=== PATIENT | male | born 1950 | race Caucasian/White ===

== ENCOUNTER 2018-05-24 11:27 | Emergency (ER) | payer OTHER ==
[~2018-05-24] VITALS: Ht 182.9 cm; Wt 129.3 kg
[~2018-05-24 11:27] MED LIST: AMLO10; AMLO10 PO; ASPI81CH; ATOR40TA; ATOR40TA PO; Aspirin EC81 MG PO; CELE200 PO; ESCI20 PO; GABA300 PO; GLIP5 PO; IBUP800 PO; INSULANPEN SC; LEVO750 PO; LOSARTAN-HCTZ1 EAC1 PO; LOSHYD100 PO; METF500 PO; Norco 5-325 Ta1 EACH PO; QVAR7.3 G1 IH; SITA100T2 PO; Simvastatin20 MG PO
[2018-05-24 11:59] LABS: Source, Urine Voided
[2018-05-24 12:08] LABS: Bilirubin, Urine Neg (Neg); Blood, Urine 5+ (Neg); Glucose Qualitative, Urine Neg (Neg); Ketones, Urine 1+ (Neg); Leukocyte Esterase, Urine 1+ (Neg); Nitrite, Urine Neg (Neg); Protein, Urine 3+ (Neg); Urobilinogen, Urine NORM (Normal)
[2018-05-24] MEDS ORDERED: AMLO5 PO (12:22)
[2018-05-24 12:23] LABS: Appearance, Urine Cloudy (Clear); Color, Urine Red (P-Yellow)
[2018-05-24] MEDS ORDERED: TAMS.4ER PO (12:23)
[2018-05-24 12:24] LABS: Red Blood Cells, Urine TNTC /hpf (0-2)
[2018-05-24 12:25] LABS: Bacteria Mod /hpf; Squamous Epithelial Cells Few /hpf (Few)
[2018-05-24] MEDS ORDERED: GABA300 PO (12:26)
[2018-05-24 12:27] LABS: BASOPHILS ABSOLUTE AUTO 0.06 K/mm3 (0.00-0.23); BASOPHILS PERCENT AUTO 1 % (0-2); EOSINOPHILS ABSOLUTE AUTO 0.26 K/mm3 (0.00-0.68); EOSINOPHILS PERCENT AUTO 3 % (0-6); Hematocrit 44.8 % (37.0-53.0); Hemoglobin 14.9 g/dL (13.5-17.5); IMMATURE GRAN ABSOLUTE AUTO 0.05 K/mm3 (0.00-0.10); IMMATURE GRAN PERCENT AUTO 1 % (0-1); LYMPHOCYTES ABSOLUTE AUTO 2.99 K/mm3 (0.84-5.20); LYMPHOCYTES PERCENT AUTO 29 % (21-46); MONOCYTES ABSOLUTE AUTO 0.82 K/mm3 (0.16-1.47); MONOCYTES PERCENT AUTO 8 % (4-13); Mean Corpuscular HGB 28.9 pg (26.0-34.0); Mean Corpuscular HGB Conc 33.3 g/dL (31.5-36.5); Mean Corpuscular Volume 87 fL (80-100); Mean Platelet Volume 9.2 fL (9.1-12.4); NEUTROPHILS ABSOLUTE AUTO 6.11 K/mm3 (1.96-9.15); NEUTROPHILS PERCENT AUTO 59 % (41-73); Platelet Count 257 K/mm3 (150-400); RDW Coefficient Variation 13.2 % (11.7-14.2); Red Blood Cell Count 5.15 M/mm3 (4.30-5.90); White Blood Cell Count 10.29 K/mm3 (4.00-11.30)
[2018-05-24] MEDS ORDERED: ALBU90OI61 INH (12:27)
[2018-05-24] MEDS ORDERED: ATOR20 PO (12:27)
[2018-05-24 12:46] LABS: Prothrombin Time Results 10.3 Sec (9.7-11.5)
[2018-05-24 12:48] LABS: Alanine Aminotransfer (ALT/SGP 31 U/L (12-78); Albumin/Globulin Ratio 0.9 (0.8-1.8); Alk Phos 124 U/L (50-136); Anion Gap 10 mmol/L (6-16); Aspartate Aminotrans (AST/SGOT 28 U/L (12-37); Bilirubin, Total 0.7 mg/dL (0.1-1.0); Blood Urea Nitrogen 20 mg/dL (8-24); CO2, Blood 23 mmol/L (21-32); Calcium, Blood 9.1 mg/dL (8.5-10.1); Chloride, Blood 103 mmol/L (98-108); Globulin, Blood 4.7 g/dL (2.2-4.0); Glomerular Filtration Rate >60 (60-); Glucose, Blood 118 mg/dL (70-99); Potassium, Blood 4.3 mmol/L (3.5-5.5); Sodium, Blood 136 mmol/L (136-145); Total Protein, Blood 8.7 g/dL (6.4-8.2)
[2018-05-24] MEDS ORDERED: Cipro500 MG PO (13:33)
== END 2018-05-24 13:40 | disposition home or self-care (01) ==
LOC: ER 11:27
PROVIDERS: Physician Assistant
DX: N39.0 Urinary tract infection, site not specified (principal); Z88.1 Allergy status to other antibiotic agents; Z79.899 Other long term (current) drug therapy; Z79.4 Long term (current) use of insulin; Z87.891 Personal history of nicotine dependence
CPT/HCPCS: 36415; 76770; 80053; 81001; 85025; 85610; 85730; 87086; 99284

== ENCOUNTER 2018-06-22 11:09 | Inpatient (IN) | payer OTHER ==
[~2018-06-22] VITALS: Ht 182.9 cm; Wt 122.5 kg
[~2018-06-22 11:09] MED LIST changes: +ALBU90OI61 INH; +AMLO5 PO; +ATOR20 PO; +Cipro500 MG PO; -METF500 PO; +METF850 PO; +TAMS.4ER PO
[2018-06-24 05:18] LABS: BASOPHILS ABSOLUTE AUTO 0.01 K/mm3 (0.00-0.23); BASOPHILS PERCENT AUTO 0 % (0-2); EOSINOPHILS PERCENT AUTO 0 % (0-6); Hematocrit 36.7 % (37.0-53.0); Hemoglobin 12.1 g/dL (13.5-17.5); IMMATURE GRAN ABSOLUTE AUTO 0.08 K/mm3 (0.00-0.10); IMMATURE GRAN PERCENT AUTO 1 % (0-1); LYMPHOCYTES ABSOLUTE AUTO 1.15 K/mm3 (0.84-5.20); LYMPHOCYTES PERCENT AUTO 8 % (21-46); MONOCYTES ABSOLUTE AUTO 0.88 K/mm3 (0.16-1.47); MONOCYTES PERCENT AUTO 6 % (4-13); Mean Corpuscular HGB 28.3 pg (26.0-34.0); Mean Corpuscular Volume 86 fL (80-100); NEUTROPHILS ABSOLUTE AUTO 12.69 K/mm3 (1.96-9.15); NEUTROPHILS PERCENT AUTO 86 % (41-73); Platelet Count 205 K/mm3 (150-400); RDW Standard Deviation 40.2 fL (35.1-46.3); Red Blood Cell Count 4.28 M/mm3 (4.30-5.90); White Blood Cell Count 14.81 K/mm3 (4.00-11.30)
[2018-06-24 05:40] LABS: Anion Gap 8 mmol/L (6-16); Blood Urea Nitrogen 26 mg/dL (8-24); Bun/Creatinine Ratio 26.4 (12.0-20.0); CO2, Blood 26 mmol/L (21-32); Calcium, Blood 8.6 mg/dL (8.5-10.1); Chloride, Blood 103 mmol/L (98-108); Creatinine, Blood 0.99 mg/dL (0.60-1.20); Glomerular Filtration Rate >60 (60-); Glucose, Blood 178 mg/dL (70-99); Potassium, Blood 4.9 mmol/L (3.5-5.5); Sodium, Blood 137 mmol/L (136-145)
[2018-06-25] MEDS ORDERED: OXYC5 PO (15:13)
[2018-06-25] MEDS ORDERED: ASPI325 PO (15:13)
[2018-06-25] MEDS ORDERED: DOCU100 PO (15:14)
== END 2018-06-25 15:23 | disposition home or self-care (01) | DRG 470 ==
LOC: SURS 06-23 12:13 → PRE IP 06-23 13:30 → SURS 06-23 18:30
PROVIDERS: Orthopaedic Surgery
PROC: 0SR90JZ Replacement of Right Hip Joint with Synthetic Substitute, Open Approach (ICD-10-PCS; principal; 2018-06-23 13:30)
DX: M16.11 Unilateral primary osteoarthritis, right hip (principal); I10 Essential (primary) hypertension; J44.9 Chronic obstructive pulmonary disease, unspecified; G47.33 Obstructive sleep apnea (adult) (pediatric); E11.9 Type 2 diabetes mellitus without complications; E66.9 Obesity, unspecified; Z68.36 Body mass index [BMI] 36.0-36.9, adult
CPT/HCPCS: 36415; 72170; 80048; 82947; 85025; 86850; 86900; 86901; 94760; 97110; 97116; 97162; 97165; 97530; 97535; A9270; C1713; C1776; G8978; G8979; G8980; G8987; G8988; J0171; J0690; J0735; J1100; J1885; J2250; J2795; J3010; J7120; Q0163

== ENCOUNTER 2018-07-08 12:42 | Emergency (ER) | payer OTHER ==
[~2018-07-08] VITALS: Ht 182.9 cm; Wt 127.0 kg
[~2018-07-08 12:42] MED LIST changes: +ASPI325 PO; +DOCU100 PO; +OXYC5 PO
[2018-07-08 15:26] LABS: Source, Urine Clean Catch
[2018-07-08 15:30] LABS: Appearance, Urine Turbid (Clear); Bilirubin, Urine Neg (Neg); Blood, Urine 5+ (Neg); Color, Urine Brown (P-Yellow); Glucose Qualitative, Urine Neg (Neg); Ketones, Urine Neg (Neg); Leukocyte Esterase, Urine 1+ (Neg); Nitrite, Urine Pos (Neg); Protein, Urine 3+ (Neg); Urobilinogen, Urine NORM (Normal)
[2018-07-08 16:05] LABS: BASOPHILS ABSOLUTE AUTO 0.07 K/mm3 (0.00-0.23); BASOPHILS PERCENT AUTO 1 % (0-2); EOSINOPHILS PERCENT AUTO 4 % (0-6); Hematocrit 39.7 % (37.0-53.0); Hemoglobin 12.5 g/dL (13.5-17.5); IMMATURE GRAN ABSOLUTE AUTO 0.09 K/mm3 (0.00-0.10); IMMATURE GRAN PERCENT AUTO 1 % (0-1); LYMPHOCYTES ABSOLUTE AUTO 2.86 K/mm3 (0.84-5.20); LYMPHOCYTES PERCENT AUTO 28 % (21-46); MONOCYTES ABSOLUTE AUTO 0.88 K/mm3 (0.16-1.47); MONOCYTES PERCENT AUTO 9 % (4-13); Mean Corpuscular HGB 28.1 pg (26.0-34.0); Mean Corpuscular HGB Conc 31.5 g/dL (31.5-36.5); Mean Corpuscular Volume 89 fL (80-100); Mean Platelet Volume 8.9 fL (9.1-12.4); NEUTROPHILS ABSOLUTE AUTO 5.83 K/mm3 (1.96-9.15); NEUTROPHILS PERCENT AUTO 58 % (41-73); Platelet Count 284 K/mm3 (150-400); RDW Coefficient Variation 13.3 % (11.7-14.2); RDW Standard Deviation 43.6 fL (35.1-46.3); Red Blood Cell Count 4.45 M/mm3 (4.30-5.90); White Blood Cell Count 10.13 K/mm3 (4.00-11.30)
[2018-07-08 16:23] LABS: Alanine Aminotransfer (ALT/SGP 32 U/L (12-78); Albumin, Blood 3.6 g/dL (3.4-5.0); Albumin/Globulin Ratio 0.8 (0.8-1.8); Alk Phos 129 U/L (50-136); Anion Gap 7 mmol/L (6-16); Aspartate Aminotrans (AST/SGOT 19 U/L (12-37); Bilirubin, Total 0.4 mg/dL (0.1-1.0); Blood Urea Nitrogen 20 mg/dL (8-24); Bun/Creatinine Ratio 17.7 (12.0-20.0); CO2, Blood 26 mmol/L (21-32); Calcium, Blood 9.1 mg/dL (8.5-10.1); Chloride, Blood 104 mmol/L (98-108); Creatinine, Blood 1.13 mg/dL (0.60-1.20); Globulin, Blood 4.6 g/dL (2.2-4.0); Glomerular Filtration Rate >60 (60-); Glucose, Blood 106 mg/dL (70-99); Potassium, Blood 4.4 mmol/L (3.5-5.5); Sodium, Blood 137 mmol/L (136-145); Total Protein, Blood 8.2 g/dL (6.4-8.2)
[2018-07-08 16:26] LABS: Bacteria Many /hpf; Red Blood Cells, Urine TNTC /hpf (0-2); Squamous Epithelial Cells Not Seen /hpf (Few)
[2018-07-08] MEDS ORDERED: LEVO750 PO (16:45)
== END 2018-07-08 17:03 | disposition home or self-care (01) ==
LOC: ER 12:42
PROVIDERS: Emergency Medicine
DX: N39.0 Urinary tract infection, site not specified (principal); R31.9 Hematuria, unspecified; Z88.1 Allergy status to other antibiotic agents; Z88.5 Allergy status to narcotic agent; Z79.899 Other long term (current) drug therapy; Z79.4 Long term (current) use of insulin; Z79.82 Long term (current) use of aspirin; Z87.891 Personal history of nicotine dependence
CPT/HCPCS: 36415; 80053; 81001; 85025; 87086; 99283

== ENCOUNTER 2018-07-11 11:27 | Emergency (ER) | payer OTHER ==
[~2018-07-11] VITALS: Ht 182.9 cm; Wt 124.7 kg
[2018-07-11 12:28] LABS: BASOPHILS ABSOLUTE AUTO 0.07 K/mm3 (0.00-0.23); BASOPHILS PERCENT AUTO 1 % (0-2); EOSINOPHILS ABSOLUTE AUTO 0.38 K/mm3 (0.00-0.68); EOSINOPHILS PERCENT AUTO 4 % (0-6); Hematocrit 37.9 % (37.0-53.0); Hemoglobin 12.1 g/dL (13.5-17.5); IMMATURE GRAN PERCENT AUTO 1 % (0-1); LYMPHOCYTES ABSOLUTE AUTO 1.87 K/mm3 (0.84-5.20); LYMPHOCYTES PERCENT AUTO 22 % (21-46); MONOCYTES PERCENT AUTO 8 % (4-13); Mean Corpuscular HGB 28.3 pg (26.0-34.0); Mean Corpuscular HGB Conc 31.9 g/dL (31.5-36.5); Mean Corpuscular Volume 89 fL (80-100); Mean Platelet Volume 9.3 fL (9.1-12.4); NEUTROPHILS PERCENT AUTO 64 % (41-73); Platelet Count 289 K/mm3 (150-400); RDW Coefficient Variation 13.5 % (11.7-14.2); RDW Standard Deviation 43.3 fL (35.1-46.3); Red Blood Cell Count 4.28 M/mm3 (4.30-5.90); White Blood Cell Count 8.62 K/mm3 (4.00-11.30)
[2018-07-11 12:46] LABS: Alanine Aminotransfer (ALT/SGP 24 U/L (12-78); Albumin, Blood 3.4 g/dL (3.4-5.0); Albumin/Globulin Ratio 0.8 (0.8-1.8); Alk Phos 140 U/L (50-136); Anion Gap 7 mmol/L (6-16); Aspartate Aminotrans (AST/SGOT 9 U/L (12-37); Bilirubin, Total 0.2 mg/dL (0.1-1.0); Blood Urea Nitrogen 26 mg/dL (8-24); CO2, Blood 26 mmol/L (21-32); Chloride, Blood 106 mmol/L (98-108); Creatinine, Blood 1.24 mg/dL (0.60-1.20); Globulin, Blood 4.5 g/dL (2.2-4.0); Glomerular Filtration Rate >60 (60-); Glucose, Blood 267 mg/dL (70-99); Potassium, Blood 4.3 mmol/L (3.5-5.5); Sodium, Blood 139 mmol/L (136-145); Total Protein, Blood 7.9 g/dL (6.4-8.2)
[2018-07-12] MEDS ORDERED: Percocet 5-3251 EACH PO (05:03)
[2018-07-12] MEDS ORDERED: HYOS.125 SL (06:51)
[2018-07-12] MEDS ORDERED: OXYB5ER PO (06:51)
[2018-07-12] MEDS ORDERED: Belladonna-Opi1 EAC1 PR (06:51)
[2018-07-12] MEDS ORDERED: Detrol LA4 MG PO (06:51)
== END 2018-07-11 16:34 | disposition home or self-care (01) ==
LOC: ER 11:27
PROVIDERS: Physician Assistant
DX: R31.9 Hematuria, unspecified (principal); R33.9 Retention of urine, unspecified; F17.210 Nicotine dependence, cigarettes, uncomplicated; Z88.1 Allergy status to other antibiotic agents; Z88.5 Allergy status to narcotic agent; Z79.899 Other long term (current) drug therapy; Z79.4 Long term (current) use of insulin; Z79.82 Long term (current) use of aspirin
CPT/HCPCS: 36415; 51700; 51798; 80053; 85025; 99283-25

== ENCOUNTER 2018-07-12 00:50 | Emergency (ER) | payer OTHER ==
[~2018-07-12] VITALS: Ht 182.9 cm; Wt 124.7 kg
[2018-07-12] MEDS ORDERED: Percocet 5-3251 EACH PO (05:03)
[2018-07-12] MEDS ORDERED: HYOS.125 SL (06:51)
[2018-07-12] MEDS ORDERED: OXYB5ER PO (06:51)
[2018-07-12] MEDS ORDERED: Detrol LA4 MG PO (06:51)
[2018-07-12] MEDS ORDERED: Belladonna-Opi1 EAC1 PR (06:51)
== END 2018-07-12 11:06 | disposition home or self-care (01) ==
LOC: ER 00:50
DX: R31.9 Hematuria, unspecified (principal); R30.0 Dysuria; N32.89 Other specified disorders of bladder; F17.210 Nicotine dependence, cigarettes, uncomplicated; Z88.1 Allergy status to other antibiotic agents; Z88.5 Allergy status to narcotic agent; Z79.899 Other long term (current) drug therapy; Z79.4 Long term (current) use of insulin; Z79.82 Long term (current) use of aspirin
CPT/HCPCS: 51700; 51702; 51798; 96372; 96374; 96375; 99283-25; J1200; J1630; J2405; J3010

== ENCOUNTER 2018-07-15 09:53 | Emergency (ER) | payer OTHER ==
[~2018-07-15] VITALS: Ht 167.6 cm; Wt 99.8 kg
[~2018-07-15 09:53] MED LIST changes: +Belladonna-Opi1 EAC1 PR; +Detrol LA4 MG PO; +HYOS.125 SL; +OXYB5ER PO; +Percocet 5-3251 EACH PO
== END 2018-07-15 11:39 | disposition home or self-care (01) ==
LOC: ER 09:53
DX: T83.83XA Hemorrhage due to genitourinary prosthetic devices, implants and grafts, initial encounter (principal); F17.210 Nicotine dependence, cigarettes, uncomplicated; Z88.1 Allergy status to other antibiotic agents; Z88.5 Allergy status to narcotic agent; Z79.899 Other long term (current) drug therapy; Z79.4 Long term (current) use of insulin; Z79.82 Long term (current) use of aspirin
CPT/HCPCS: 99283

== ENCOUNTER 2018-07-20 04:26 | Emergency (ER) | payer OTHER ==
[~2018-07-20] VITALS: Ht 182.9 cm; Wt 124.7 kg
== END 2018-07-20 05:42 | disposition home or self-care (01) ==
LOC: ER 04:26
DX: T83.098A Other mechanical complication of other urinary catheter, initial encounter (principal); R31.9 Hematuria, unspecified; Z88.1 Allergy status to other antibiotic agents; Z88.5 Allergy status to narcotic agent; Z79.899 Other long term (current) drug therapy; Z79.84 Long term (current) use of oral hypoglycemic drugs; Z79.4 Long term (current) use of insulin; Z79.82 Long term (current) use of aspirin; Z79.2 Long term (current) use of antibiotics; F17.210 Nicotine dependence, cigarettes, uncomplicated
CPT/HCPCS: 51702; 99283

== ENCOUNTER 2018-07-20 06:42 | Emergency (ER) | payer OTHER ==
[~2018-07-20] VITALS: Ht 182.9 cm; Wt 124.7 kg
== END 2018-07-20 10:23 | disposition home or self-care (01) ==
LOC: ER 06:42
DX: T83.091A Other mechanical complication of indwelling urethral catheter, initial encounter (principal); N32.89 Other specified disorders of bladder; F17.210 Nicotine dependence, cigarettes, uncomplicated; Z88.1 Allergy status to other antibiotic agents; Z88.5 Allergy status to narcotic agent; Z79.899 Other long term (current) drug therapy; Z79.4 Long term (current) use of insulin; Z79.82 Long term (current) use of aspirin
CPT/HCPCS: 51700; 51702; 51798; 96372; 99283-25; J2550; J3010

== ENCOUNTER 2018-11-02 00:56 | Day surgery (SDC) | payer OTHER ==
[~2018-11-02 00:56] MED LIST changes: +DOXA1 PO; +HYDR1TAB94 PO; +Hydrocodone-Ap1 EA23 PO; +OXYB5 PO
[2018-11-02] MEDS ORDERED: Glucophage1000 MG PO (23:43)
[2018-11-02] MEDS ORDERED: TIOT18 INH (23:44)
[2018-11-02] MEDS ORDERED: Ferrous Sulfat325 M2 PO (23:45)
[2018-11-02] MEDS ORDERED: VITAMIN B-121000 MCG PO (23:46)
[2018-11-02] MEDS ORDERED: HYOS.125 SL (23:49)
[2018-11-03] MEDS ORDERED: ACET325 PO (11:56)
[2018-11-03] MEDS ORDERED: Bisac-Evac10 MG PR (11:57)
[2018-11-03] MEDS ORDERED: LEVO750 PO (11:58)
[2018-11-03] MEDS ORDERED: ONDA4ODT MM (11:59)
[2018-11-03] MEDS ORDERED: SACC250C PO (11:59)
== END 2018-11-02 14:12 | disposition home or self-care (01) ==
LOC: ATC 00:56
DX: Z48.00 Encounter for change or removal of nonsurgical wound dressing (principal); C67.9 Malignant neoplasm of bladder, unspecified; E11.9 Type 2 diabetes mellitus without complications; F17.200 Nicotine dependence, unspecified, uncomplicated; Z79.4 Long term (current) use of insulin
CPT/HCPCS: 99211

== ENCOUNTER 2018-11-02 18:57 | Observation (INO) | payer OTHER ==
[~2018-11-02] VITALS: Ht 182.9 cm; Wt 122.5 kg
[2018-11-02 21:47] LABS: Source, Urine Clean Catch
[2018-11-02 21:56] LABS: Appearance, Urine Cloudy (Clear); Bilirubin, Urine Neg (Neg); Blood, Urine 5+ (Neg); Color, Urine Amber (P-Yellow); Glucose Qualitative, Urine Neg (Neg); Ketones, Urine Neg (Neg); Leukocyte Esterase, Urine 3+ (Neg); Nitrite, Urine Neg (Neg); Protein, Urine 3+ (Neg); Specific Gravity, Urine 1.015 (1.003-1.022); Urobilinogen, Urine NORM (Normal)
[2018-11-02 21:57] LABS: BASOPHILS ABSOLUTE AUTO 0.02 K/mm3 (0.00-0.23); BASOPHILS PERCENT AUTO 0 % (0-2); EOSINOPHILS ABSOLUTE AUTO 0.04 K/mm3 (0.00-0.68); EOSINOPHILS PERCENT AUTO 0 % (0-6); Hematocrit 25.1 % (37.0-53.0); Hemoglobin 7.9 g/dL (13.5-17.5); IMMATURE GRAN ABSOLUTE AUTO 0.12 K/mm3 (0.00-0.10); IMMATURE GRAN PERCENT AUTO 1 % (0-1); LYMPHOCYTES ABSOLUTE AUTO 2.53 K/mm3 (0.84-5.20); LYMPHOCYTES PERCENT AUTO 21 % (21-46); MONOCYTES PERCENT AUTO 13 % (4-13); Mean Corpuscular HGB 26.5 pg (26.0-34.0); Mean Corpuscular HGB Conc 31.5 g/dL (31.5-36.5); Mean Corpuscular Volume 84 fL (80-100); NEUTROPHILS ABSOLUTE AUTO 7.68 K/mm3 (1.96-9.15); NEUTROPHILS PERCENT AUTO 65 % (41-73); Platelet Count 98 K/mm3 (150-400); RDW Coefficient Variation 18.8 % (11.7-14.2); RDW Standard Deviation 55.5 fL (35.1-46.3); Red Blood Cell Count 2.98 M/mm3 (4.30-5.90); White Blood Cell Count 11.89 K/mm3 (4.00-11.30)
[2018-11-02 22:06] LABS: Red Blood Cells, Urine 50-100 /hpf (0-2); White Blood Cells, Urine 25-50 /hpf (0-5)
[2018-11-02 22:07] LABS: Bacteria Many /hpf; Squamous Epithelial Cells Few /hpf (Few)
[2018-11-02 22:09] LABS: Albumin, Blood 2.8 g/dL (3.4-5.0); Albumin/Globulin Ratio 0.7 (0.8-1.8); Bilirubin, Total 0.2 mg/dL (0.1-1.0); Bun/Creatinine Ratio 13.2 (12.0-20.0); Creatinine, Blood 1.44 mg/dL (0.60-1.20); Globulin, Blood 4.1 g/dL (2.2-4.0); Potassium, Blood 3.8 mmol/L (3.5-5.5); Total Protein, Blood 6.9 g/dL (6.4-8.2)
[2018-11-02] MEDS ORDERED: Glucophage1000 MG PO ×2 (23:43)
[2018-11-02] MEDS ORDERED: TIOT18 INH ×2 (23:44)
[2018-11-02] MEDS ORDERED: Ferrous Sulfat325 M2 PO ×2 (23:45)
[2018-11-02] MEDS ORDERED: VITAMIN B-121000 MCG PO ×2 (23:46)
[2018-11-02] MEDS ORDERED: HYOS.125 SL ×2 (23:49)
[2018-11-03 01:52] LABS: Influenza A Negative (NEGATIVE); Influenza B Negative (NEGATIVE)
[2018-11-03 06:12] LABS: Hemoglobin 7.8 g/dL (13.5-17.5); Mean Corpuscular HGB 25.7 pg (26.0-34.0); Mean Corpuscular HGB Conc 31.2 g/dL (31.5-36.5); Mean Corpuscular Volume 83 fL (80-100); Platelet Count 98 K/mm3 (150-400); RDW Coefficient Variation 18.5 % (11.7-14.2); Red Blood Cell Count 3.03 M/mm3 (4.30-5.90); White Blood Cell Count 9.81 K/mm3 (4.00-11.30)
[2018-11-03 06:27] LABS: Albumin, Blood 2.6 g/dL (3.4-5.0); Albumin/Globulin Ratio 0.6 (0.8-1.8); Bilirubin, Total 0.2 mg/dL (0.1-1.0); Bun/Creatinine Ratio 12.9 (12.0-20.0); Calcium, Blood 8.1 mg/dL (8.5-10.1); Creatinine, Blood 1.32 mg/dL (0.60-1.20); Globulin, Blood 4.3 g/dL (2.2-4.0); Potassium, Blood 3.7 mmol/L (3.5-5.5); Total Protein, Blood 6.9 g/dL (6.4-8.2)
[2018-11-03 08:03] LABS: Glucose, Blood 140 mg/dL (70-99)
[2018-11-03] MEDS ORDERED: ACET325 PO ×2 (11:56)
[2018-11-03] MEDS ORDERED: Bisac-Evac10 MG PR ×2 (11:57)
[2018-11-03] MEDS ORDERED: LEVO750 PO ×2 (11:58)
[2018-11-03] MEDS ORDERED: SACC250C PO ×2 (11:59)
[2018-11-03] MEDS ORDERED: ONDA4ODT MM ×2 (11:59)
== END 2018-11-03 14:29 | disposition home or self-care (01) ==
LOC: ER 18:57 → ERHOLD 18:58 → ER 11-03 01:01 → ERHOLD 11-03 01:01
PROVIDERS: Emergency Medicine; Internal Medicine
DX: N39.0 Urinary tract infection, site not specified (principal); K59.00 Constipation, unspecified; D50.0 Iron deficiency anemia secondary to blood loss (chronic); Z88.1 Allergy status to other antibiotic agents; Z88.5 Allergy status to narcotic agent; Z79.899 Other long term (current) drug therapy; Z87.891 Personal history of nicotine dependence
CPT/HCPCS: 36415; 71045; 80053; 81001; 82947; 83605; 85025; 85027; 86850; 86900; 86901; 86923; 87077; 87086; 87186; 87804; 93005; 93010; 96361; 96374; 96375; 99284-25; J1956; J3010; J7030; P9016

== ENCOUNTER 2018-11-14 13:55 | Day surgery (SDC) | payer OTHER ==
[~2018-11-14 13:55] MED LIST changes: +ACET325 PO; +Bisac-Evac10 MG PR; +Ferrous Sulfat325 M2 PO; +Glucophage1000 MG PO; +ONDA4ODT MM; +SACC250C PO; +TIOT18 INH; +VITAMIN B-121000 MCG PO
== END 2018-11-14 14:15 | disposition home or self-care (01) ==
LOC: ATC 13:55
DX: C67.9 Malignant neoplasm of bladder, unspecified (principal)
CPT/HCPCS: 99211

== ENCOUNTER 2018-11-24 00:07 | Day surgery (SDC) | payer OTHER ==
[2018-11-24 10:24] LABS: Source, Urine Catheter
[2018-11-24 10:31] LABS: Appearance, Urine Clear (Clear); Blood, Urine 4+ (Neg); Glucose Qualitative, Urine Neg (Neg); Ketones, Urine Neg (Neg); Leukocyte Esterase, Urine 3+ (Neg); Nitrite, Urine Pos (Neg); Protein, Urine 3+ (Neg); Urobilinogen, Urine 1+ (Normal)
[2018-11-24 10:32] LABS: Hematocrit 28.3 % (37.0-53.0); Hemoglobin 8.7 g/dL (13.5-17.5); Mean Corpuscular HGB Conc 30.7 g/dL (31.5-36.5); Mean Corpuscular Volume 85 fL (80-100); Mean Platelet Volume 8.4 fL (9.1-12.4); NRBC ABSOLUTE 0.03 K/mm3 (0.00-0.02); NRBC Auto 0.7 /100 WBC (0.0-0.2); Platelet Count 130 K/mm3 (150-400); RDW Standard Deviation 57.6 fL (35.1-46.3); Red Blood Cell Count 3.34 M/mm3 (4.30-5.90); White Blood Cell Count 4.44 K/mm3 (4.00-11.30)
[2018-11-24 10:36] LABS: Bilirubin, Urine 1+ (Neg)
[2018-11-24 10:37] LABS: Color, Urine Yellow (P-Yellow)
[2018-11-24 10:40] LABS: Bacteria Mod /hpf; Mucus Light (0-Heavy); Squamous Epithelial Cells Few /hpf (Few)
[2018-11-24 10:51] LABS: Albumin, Blood 3.2 g/dL (3.4-5.0); Albumin/Globulin Ratio 0.7 (0.8-1.8); Bilirubin, Total 0.4 mg/dL (0.1-1.0); Bun/Creatinine Ratio 15.5 (12.0-20.0); Creatinine, Blood 1.87 mg/dL (0.60-1.20); Globulin, Blood 4.6 g/dL (2.2-4.0); Potassium, Blood 4.7 mmol/L (3.5-5.5); Total Protein, Blood 7.8 g/dL (6.4-8.2)
[2018-11-24 10:52] LABS: BASOPHILS PERCENT MAN 0 % (0-2); EOSINOPHILS ABSOLUTE MAN 0.17 K/mm3 (0.00-0.68); EOSINOPHILS PERCENT MAN 4 % (0-6); LYMPHOCYTES % ATYPICAL MANUAL 1 % (0-0); LYMPHOCYTES ABSOLUTE MAN 1.11 K/mm3 (0.84-5.20); LYMPHOCYTES PERCENT MAN 24 % (21-46); MONOCYTES ABSOLUTE MAN 0.31 K/mm3 (0.16-1.47); MONOCYTES PERCENT MAN 7 % (4-13); NEUTROPHILS ABSOLUTE MAN 2.84 K/mm3 (1.96-9.15); SEG NEUTROPHILS PERCENT MAN 64 % (41-73); TOTAL CELLS COUNTED 100
== END 2018-11-24 10:20 | disposition home or self-care (01) ==
LOC: ATC 00:07
PROVIDERS: Internal Medicine Hematology & Oncology
DX: C67.0 Malignant neoplasm of trigone of bladder (principal); F17.210 Nicotine dependence, cigarettes, uncomplicated; I10 Essential (primary) hypertension; E11.9 Type 2 diabetes mellitus without complications
CPT/HCPCS: 36592; 80053; 81001; 83735; 85025; 87077; 87086; 87186

== ENCOUNTER 2018-11-30 00:09 | Day surgery (SDC) | payer OTHER ==
[2018-11-30] MEDS ORDERED: Bactrim Ds Tab1 EACH PO (11:11)
== END 2018-11-30 23:05 | disposition home or self-care (01) ==
LOC: ATC 00:09
DX: Z48.00 Encounter for change or removal of nonsurgical wound dressing (principal); C67.9 Malignant neoplasm of bladder, unspecified
CPT/HCPCS: 99211

== ENCOUNTER 2018-12-07 00:08 | Day surgery (SDC) | payer OTHER ==
[~2018-12-07 00:08] MED LIST changes: +Bactrim Ds Tab1 EACH PO
== END 2018-12-07 09:16 | disposition home or self-care (01) ==
LOC: ATC 00:08
DX: C67.0 Malignant neoplasm of trigone of bladder (principal); F17.210 Nicotine dependence, cigarettes, uncomplicated; E78.00 Pure hypercholesterolemia, unspecified; I10 Essential (primary) hypertension
CPT/HCPCS: 99211

== ENCOUNTER 2018-12-14 00:11 | Day surgery (SDC) | payer OTHER | END 2018-12-14 11:08 | disposition home or self-care (01) | LOC: ATC 00:11 | DX: Z48.00 Encounter for change or removal of nonsurgical wound dressing (principal); C67.9 Malignant neoplasm of bladder, unspecified | CPT/HCPCS: 99211 ==

== ENCOUNTER 2018-12-17 09:23 | Day surgery (SDC) | payer OTHER ==
--- NOTE | 2018-12-17 10:56 | NUR ---
BLOOD DRAWN VIA PICC, WILL COMPLETE ASSESSMENT WHEN PT RETURNS FOR BLOOD TRANSFUSION.
== END 2018-12-17 15:40 | disposition home or self-care (01) ==
LOC: ATC 09:23
DX: C67.9 Malignant neoplasm of bladder, unspecified (principal)
CPT/HCPCS: 36430; 36592; 86850; 86900; 86901; 86923; J7050; P9016

== ENCOUNTER 2018-12-21 00:22 | Day surgery (SDC) | payer OTHER ==
[2018-12-21 10:53] LABS: BASOPHILS ABSOLUTE AUTO 0.01 K/mm3 (0.00-0.23); BASOPHILS PERCENT AUTO 0 % (0-2); EOSINOPHILS ABSOLUTE AUTO 0.07 K/mm3 (0.00-0.68); EOSINOPHILS PERCENT AUTO 3 % (0-6); Hematocrit 26.6 % (37.0-53.0); Hemoglobin 8.3 g/dL (13.5-17.5); IMMATURE GRAN ABSOLUTE AUTO 0.06 K/mm3 (0.00-0.10); IMMATURE GRAN PERCENT AUTO 3 % (0-1); LYMPHOCYTES ABSOLUTE AUTO 1.04 K/mm3 (0.84-5.20); LYMPHOCYTES PERCENT AUTO 43 % (21-46); MONOCYTES ABSOLUTE AUTO 0.61 K/mm3 (0.16-1.47); MONOCYTES PERCENT AUTO 25 % (4-13); Mean Corpuscular HGB 27.9 pg (26.0-34.0); Mean Corpuscular HGB Conc 31.2 g/dL (31.5-36.5); Mean Platelet Volume 9.1 fL (9.1-12.4); NEUTROPHILS ABSOLUTE AUTO 0.65 K/mm3 (1.96-9.15); NEUTROPHILS PERCENT AUTO 27 % (41-73); NRBC ABSOLUTE 0.03 K/mm3 (0.00-0.02); NRBC Auto 1.2 /100 WBC (0.0-0.2); Platelet Count 287 K/mm3 (150-400); RDW Standard Deviation 65.1 fL (35.1-46.3); Red Blood Cell Count 2.97 M/mm3 (4.30-5.90); White Blood Cell Count 2.44 K/mm3 (4.00-11.30)
[2018-12-21 10:54] LABS: Mean Corpuscular Volume 90 fL (80-100)
[2018-12-21 11:14] LABS: Bun/Creatinine Ratio 15.4 (12.0-20.0); Calcium, Blood 8.6 mg/dL (8.5-10.1); Creatinine, Blood 1.82 mg/dL (0.60-1.20); Potassium, Blood 4.8 mmol/L (3.5-5.5)
== END 2018-12-21 10:43 | disposition home or self-care (01) ==
LOC: ATC 00:22
PROVIDERS: Internal Medicine Hematology & Oncology
DX: C67.9 Malignant neoplasm of bladder, unspecified (principal); D70.1 Agranulocytosis secondary to cancer chemotherapy; D64.81 Anemia due to antineoplastic chemotherapy
CPT/HCPCS: 36592; 80048; 85025

== ENCOUNTER 2018-12-22 00:04 | Day surgery (SDC) | payer OTHER | END 2018-12-22 22:45 | disposition home or self-care (01) | LOC: ATC 00:04 | DX: C67.0 Malignant neoplasm of trigone of bladder (principal) ==

== ENCOUNTER 2018-12-28 00:08 | Day surgery (SDC) | payer OTHER | END 2018-12-28 22:42 | disposition home or self-care (01) | LOC: ATC 00:08 | DX: C67.0 Malignant neoplasm of trigone of bladder (principal) | CPT/HCPCS: 99211 ==

== ENCOUNTER 2019-01-04 00:04 | Day surgery (SDC) | payer OTHER ==
--- NOTE | 2019-01-04 15:45 | NUR ---
STERILE TECHNIQUE MAINTAINED T/O PROCEDURE. PT HAS SMALL <1 CM OF REDNESS TO TOP OF WINDOW DRESSING. STRIP OF MEPILEX PLACED OVER TO MAINTAIN SKIN INTEGRITY. LINE @ 14 CM BEFORE AND AFTER DRESSING CHANGE. AFTER NUMEROUS ATTEMPTS TO OBTAIN PICC RECORD FROM [facility] HAVE BEEN UNSUCCESSFUL. THIS RN CALLED AND SPOKE WITH HUY Morgan PICC RN AND SHE REPORTS PER PICC RECORD LENGTH OF LINE @ TIME OF INSERTION WAS 50 CM AND MEDICAL RECORD REPORTS THEY ARE SENDING THE PICC RECORD.
[2019-01-04 16:02] LABS: Bun/Creatinine Ratio 20.4 (12.0-20.0); Calcium, Blood 9.1 mg/dL (8.5-10.1); Creatinine, Blood 2.06 mg/dL (0.60-1.20); Potassium, Blood 4.5 mmol/L (3.5-5.5)
== END 2019-01-04 23:02 | disposition home or self-care (01) ==
LOC: ATC 00:04
PROVIDERS: Nurse Practitioner Adult Health
DX: C67.9 Malignant neoplasm of bladder, unspecified (principal); Z48.00 Encounter for change or removal of nonsurgical wound dressing; D70.1 Agranulocytosis secondary to cancer chemotherapy; D64.81 Anemia due to antineoplastic chemotherapy; I10 Essential (primary) hypertension
CPT/HCPCS: 36592; 80048

== ENCOUNTER 2019-05-29 20:28 | Inpatient (IN) | payer OTHER ==
[~2019-05-29] VITALS: Ht 182.9 cm; Wt 102.6 kg
[2019-05-29 20:57] LABS: BASOPHILS ABSOLUTE AUTO 0.02 K/mm3 (0.00-0.23); BASOPHILS PERCENT AUTO 0 % (0-2); EOSINOPHILS ABSOLUTE AUTO 0.09 K/mm3 (0.00-0.68); EOSINOPHILS PERCENT AUTO 1 % (0-6); Hematocrit 26.5 % (37.0-53.0); Hemoglobin 8.1 g/dL (13.5-17.5); IMMATURE GRAN ABSOLUTE AUTO 0.08 K/mm3 (0.00-0.10); IMMATURE GRAN PERCENT AUTO 1 % (0-1); LYMPHOCYTES ABSOLUTE AUTO 0.92 K/mm3 (0.84-5.20); LYMPHOCYTES PERCENT AUTO 9 % (21-46); MONOCYTES ABSOLUTE AUTO 0.55 K/mm3 (0.16-1.47); MONOCYTES PERCENT AUTO 5 % (4-13); Mean Corpuscular HGB 25.5 pg (26.0-34.0); Mean Corpuscular HGB Conc 30.6 g/dL (31.5-36.5); Mean Corpuscular Volume 83 fL (80-100); Mean Platelet Volume 8.6 fL (9.1-12.4); NEUTROPHILS ABSOLUTE AUTO 8.55 K/mm3 (1.96-9.15); NEUTROPHILS PERCENT AUTO 84 % (41-73); Platelet Count 289 K/mm3 (150-400); RDW Coefficient Variation 15.9 % (11.7-14.2); RDW Standard Deviation 48.9 fL (35.1-46.3); Red Blood Cell Count 3.18 M/mm3 (4.30-5.90); White Blood Cell Count 10.21 K/mm3 (4.00-11.30)
[2019-05-29 21:03] LABS: Source, Urine Catheter
[2019-05-29 21:05] LABS: Bilirubin, Urine Neg (Neg); Blood, Urine 5+ (Neg); Glucose Qualitative, Urine Neg (Neg); Ketones, Urine Neg (Neg); Leukocyte Esterase, Urine 3+ (Neg); Nitrite, Urine Pos (Neg); Protein, Urine 2+ (Neg); Specific Gravity, Urine 1.015 (1.003-1.022); Urobilinogen, Urine NORM (Normal)
[2019-05-29 21:08] LABS: Albumin/Globulin Ratio 0.4 (0.8-1.8); Bilirubin, Total 0.2 mg/dL (0.1-1.0); Calcium, Blood 9.8 mg/dL (8.5-10.1); Creatinine, Blood 1.67 mg/dL (0.60-1.20); Globulin, Blood 5.6 g/dL (2.2-4.0); Potassium, Blood 4.4 mmol/L (3.5-5.5); Total Protein, Blood 7.6 g/dL (6.4-8.2)
[2019-05-29 21:11] LABS: Appearance, Urine Hazy (Clear); Color, Urine Yellow (P-Yellow)
[2019-05-29 21:12] LABS: Red Blood Cells, Urine TNTC /hpf (0-2)
[2019-05-29 21:13] LABS: Bacteria Many /hpf; Squamous Epithelial Cells Rare /hpf (Few)
[2019-05-29 21:14] LABS: Uric Acid Crystals Few /hpf
[2019-05-29] MEDS ORDERED: DOCU100 PO (21:28)
[2019-05-29] MEDS ORDERED: Advair Hfa 45-212 GM INH (21:29)
[2019-05-29] MEDS ORDERED: IBUP800 PO (21:30)
[2019-05-29] MEDS ORDERED: THERAGRAN-M PR1 EACH PO (21:31)
[2019-05-29] MEDS ORDERED: OXYC30ER PO (21:31)
[2019-05-29] MEDS ORDERED: XARELTO1 EACH PO (21:32)
[2019-05-29] MEDS ORDERED: ROXICODONE5 MG PO (21:32)
[2019-05-30 05:33] LABS: BASOPHILS ABSOLUTE AUTO 0.02 K/mm3 (0.00-0.23); BASOPHILS PERCENT AUTO 0 % (0-2); EOSINOPHILS ABSOLUTE AUTO 0.08 K/mm3 (0.00-0.68); EOSINOPHILS PERCENT AUTO 1 % (0-6); Hematocrit 22.4 % (37.0-53.0); Hemoglobin 6.8 g/dL (13.5-17.5); IMMATURE GRAN ABSOLUTE AUTO 0.09 K/mm3 (0.00-0.10); IMMATURE GRAN PERCENT AUTO 1 % (0-1); LYMPHOCYTES ABSOLUTE AUTO 1.27 K/mm3 (0.84-5.20); LYMPHOCYTES PERCENT AUTO 14 % (21-46); MONOCYTES PERCENT AUTO 8 % (4-13); Mean Corpuscular HGB 25.2 pg (26.0-34.0); Mean Corpuscular HGB Conc 30.4 g/dL (31.5-36.5); Mean Corpuscular Volume 83 fL (80-100); Mean Platelet Volume 8.5 fL (9.1-12.4); NEUTROPHILS PERCENT AUTO 76 % (41-73); Platelet Count 223 K/mm3 (150-400); RDW Coefficient Variation 16.2 % (11.7-14.2); RDW Standard Deviation 49.4 fL (35.1-46.3); White Blood Cell Count 8.86 K/mm3 (4.00-11.30)
[2019-05-30 05:52] LABS: Bun/Creatinine Ratio 15.5 (12.0-20.0); Creatinine, Blood 1.55 mg/dL (0.60-1.20); Potassium, Blood 4.1 mmol/L (3.5-5.5)
[2019-05-30] MEDS ORDERED: LIDO700A20 TOP (11:48)
[2019-05-30] MEDS ORDERED: GABA600 PO (11:48)
[2019-05-30] MEDS ORDERED: FENT50TP TOP (11:50)
--- NOTE | 2019-05-30 17:35 | NUR ---
SHIFT SUMMARY ADMIT THIS AFTERNOON. 1 UNIT PRBC'S GIVEN TODAY. CYSTECTOMY, COLOSTOMY, RIGHT UROSTOMY AND HEALING SURGICAL WOUND TO LEFT ABDOMEN. C/O PAIN TO LOWER BACK PRN MEDS EFFECTIVE. TRANSFERRED FROM [facility] TO [facility] YESTERDAY AND SENT HERE FOR FEVER. AFEBRILE THIS ADMIT. [employer]. LIVES AT HOME WITH SPOUSE.
--- NOTE | 2019-05-31 03:43 | NUR ---
shift summary: Pt c/o alot of back pain that pain meds weren't helping. Pt given a heating pad which seemed to do the job. Nephrostomy bag putting out dard red urine. Urostomy urine color- normal yellow. Ileostomy emptied x 2 during night for stool. No high temperatures during shift.
[2019-05-31 06:07] LABS: BASOPHILS ABSOLUTE AUTO 0.02 K/mm3 (0.00-0.23); BASOPHILS PERCENT AUTO 0 % (0-2); EOSINOPHILS PERCENT AUTO 1 % (0-6); Hematocrit 24.1 % (37.0-53.0); Hemoglobin 7.6 g/dL (13.5-17.5); IMMATURE GRAN ABSOLUTE AUTO 0.08 K/mm3 (0.00-0.10); IMMATURE GRAN PERCENT AUTO 1 % (0-1); LYMPHOCYTES PERCENT AUTO 12 % (21-46); MONOCYTES ABSOLUTE AUTO 0.83 K/mm3 (0.16-1.47); MONOCYTES PERCENT AUTO 9 % (4-13); Mean Corpuscular HGB 25.9 pg (26.0-34.0); Mean Corpuscular HGB Conc 31.5 g/dL (31.5-36.5); Mean Corpuscular Volume 82 fL (80-100); Mean Platelet Volume 8.5 fL (9.1-12.4); NEUTROPHILS PERCENT AUTO 76 % (41-73); Platelet Count 210 K/mm3 (150-400); RDW Coefficient Variation 16.2 % (11.7-14.2); RDW Standard Deviation 49.2 fL (35.1-46.3); Red Blood Cell Count 2.93 M/mm3 (4.30-5.90); White Blood Cell Count 9.03 K/mm3 (4.00-11.30)
[2019-05-31 06:21] LABS: Albumin, Blood 1.7 g/dL (3.4-5.0); Anion Gap 8 mmol/L (6-16); Blood Urea Nitrogen 24 mg/dL (8-24); Bun/Creatinine Ratio 14.5 (12.0-20.0); CO2, Blood 21 mmol/L (21-32); Calcium, Blood 9.4 mg/dL (8.5-10.1); Chloride, Blood 105 mmol/L (98-108); Creatinine, Blood 1.66 mg/dL (0.60-1.20); Glomerular Filtration Rate 44 (60-); Glucose, Blood 98 mg/dL (70-99); Phosphorus, Blood 3.9 mg/dL (2.5-4.9); Potassium, Blood 4.2 mmol/L (3.5-5.5); Sodium, Blood 134 mmol/L (136-145)
--- NOTE | 2019-05-31 14:13 | NUR ---
THIS MORNING HE WAS FRUSTRATED AND ANGRY ABOUT BEING HERE IN [facility] INSTEAD OF BEING AT REHAB OR HOME. HE DIDN'T LIKE ANY OF THE FOOD ON HIS TRAY. HE SAID YES TO TOAST. I MADE HIM SOME TOAST BUT HE ONLY TOOK A FEW BITES WELL AFTER I BROUGHT IT. ROUNDED AND FELT HIS FRUSTRATION ANSWERING HIS QUESTIONS BEST SHE COULD. THE PALLIATIVE NURSE CONSULTED REGARDING PAIN MANAGEMENT. SHE DISCUSSED HER THOUGHTS WITH AND WE CLARIFIED THE FENTANYL PATCH ORDER. HIS FIANCEE IS AT THE BEDSIDE. NABIL THEN STARTED TO HAVE SHAKING CHILLS. TEMP WAS 98.4. LATER THE CHILLS PERSISTED, TEMP WAS 101.1. TYLENOL WAS GIVEN. HE HAS BEEN SLEEPY. TEMP CHECKED ABOUT 70 MIN AFTER THE TYLENOL AND IT WAS 102.2. I NOTIFIED . SHE IS REVIEWING HIS CHART AND WILL PUT IN ORDERS. HE IS SLEEPY AND SWEATY. NO SHAKES. HIS FIANCEE REMAINS AT THE BEDSIDE. KPAD WAS REMOVED FROM HIS BACK AT BREAKFAST TIME PER HIS REQUEST. SCD'S WERE APPLIED AFTER BREAKFAST. HIS WHOLE OSTOMY APPLIANCE ON HIS LEFT ABD WAS REPLACED BECAUSE IT HAD A SMALL LEAK AT THE BOTTOM. HIS UROSTOMY URINE DRAINAGE HAS SOME STRINGY BLOOD AND SEDIMENT IN IT. HIS R NEPHROSTOMY URINE IS CLEAR MECHELLE.CBG'S STABLE.
--- NOTE | 2019-05-31 15:06 | NUR ---
Brief initial visit today at 1140 am per pt's limitation. See previous case conference note from this am. Pt reports feeling slighly better with respect to pain. Medication changes discussed with him and SO, Lora at bedside. He is feeling very weak and acknowledges that he needs to return to rehab before going home because it would be too much for Lora and him to manage currently. Pt has a new nephrostomy and new urostomy due to new dx of bladder cancer and mets. He has just been discharged from [facility] and had been at [facility] for 1-2 days becoming febrile and being admitted. Agreed with pt that I would return this afternoon or tomorrow if he was up to full visit/assessment for needs and s/s management. Plan to follow closely while in hospital.
--- NOTE | 2019-05-31 17:46 | NUR ---
UP TO THE CHAIR THIS EVENING WITH 2 ASSIST. HE IS VERY WEAK. NO CHANGES IN OUTPUTS FROM COLOSTOMY, UROSTOMY OR NEPHROSTOMY. BATH GIVEN AND LINEN CHANGED. HE DIAPHORESED FROM A 102.2 FEVER. DENIES DIZZINESS OR SOB. HIS PAIN IS AT THE END OF HIS SPINE IN THE LOW LOW BACK.
--- NOTE | 2019-05-31 22:27 | NUR ---
blood pressure: Pt's blood pressure = 88/49, confirmed manually. Pt is non-symptomatic. Md notified. Pt given a 1000 cc bolus ns. BP wnl after bolus.
--- NOTE | 2019-06-01 05:39 | NUR ---
Shift summary: Pt did well last pm. Medicated x 2 with oxycodone with good relief. Urostomy and nephrostomy working well. No leaking from sites. Pt in better mood last pm. Temperature wnl last pm. Bp was 81/46 at 1999 last pm. MD called and pt given a 1 liter bolus. BP wnl after bolus. Pt hoping that he gets to go back to rehab today.
[2019-06-01 06:30] LABS: Albumin, Blood 1.8 g/dL (3.4-5.0); Anion Gap 6 mmol/L (6-16); Blood Urea Nitrogen 26 mg/dL (8-24); Bun/Creatinine Ratio 13.7 (12.0-20.0); CO2, Blood 22 mmol/L (21-32); Calcium, Blood 9.5 mg/dL (8.5-10.1); Chloride, Blood 105 mmol/L (98-108); Glomerular Filtration Rate 38 (60-); Glucose, Blood 102 mg/dL (70-99); Phosphorus, Blood 3.8 mg/dL (2.5-4.9); Potassium, Blood 4.2 mmol/L (3.5-5.5); Sodium, Blood 133 mmol/L (136-145)
[2019-06-01 06:31] LABS: BASOPHILS ABSOLUTE AUTO 0.01 K/mm3 (0.00-0.23); BASOPHILS PERCENT AUTO 0 % (0-2); EOSINOPHILS PERCENT AUTO 1 % (0-6); Hematocrit 25.3 % (37.0-53.0); Hemoglobin 7.7 g/dL (13.5-17.5); IMMATURE GRAN ABSOLUTE AUTO 0.04 K/mm3 (0.00-0.10); IMMATURE GRAN PERCENT AUTO 1 % (0-1); LYMPHOCYTES ABSOLUTE AUTO 0.75 K/mm3 (0.84-5.20); LYMPHOCYTES PERCENT AUTO 11 % (21-46); MONOCYTES ABSOLUTE AUTO 0.58 K/mm3 (0.16-1.47); MONOCYTES PERCENT AUTO 8 % (4-13); Mean Corpuscular HGB 25.6 pg (26.0-34.0); Mean Corpuscular HGB Conc 30.4 g/dL (31.5-36.5); Mean Corpuscular Volume 84 fL (80-100); Mean Platelet Volume 8.8 fL (9.1-12.4); NEUTROPHILS ABSOLUTE AUTO 5.64 K/mm3 (1.96-9.15); NEUTROPHILS PERCENT AUTO 79 % (41-73); Platelet Count 228 K/mm3 (150-400); RDW Coefficient Variation 16.5 % (11.7-14.2); RDW Standard Deviation 50.6 fL (35.1-46.3); Red Blood Cell Count 3.01 M/mm3 (4.30-5.90); White Blood Cell Count 7.12 K/mm3 (4.00-11.30)
--- NOTE | 2019-06-01 11:29 | NUR ---
HE IS VERY FOCUSED ON HIMSELF CAN BE EXPECTED. HE PERCEIVES THINGS IN AN EXAGERATED WAY. THE NOC RN JUST BEFORE LEAVING SAW A QUARTER SIZE SPOT OF BLOOD ON HIS GOWN OVER HIS COLOSTOMY SITE AND SAID THE APPLIANCE NEEDS CHANGING. I WENT IN. NO DRAINAGE FROM COLOSTOMY, BLOOD OR OTHERWISE. THE WAFER WAS LOOSE ALONF TOP SURFACE. I CHANGED THE WHOLE APPLIANCE. STOMA AND SKIN WNL. SCANT STOOL PRESENT. HIS MOOD IMPROVED A LITTLE TIME WENT BY. HE WAS LESS STRESSED. ABD DRESSING ALSO CHANGED. LATER I CHANGED THE DRESSING OVER HIS R NEPHROSTOMY TUBE. BIOPATCH, SMALL GAUZE AND TEGADERM. TUBE IS SUTURED IN PLACE AND DRAINING WELL. HE ATE SOME BREAKFAST THIS MORNING TOO. ALL IS BETTER THIS MORNING COMPARED TO YESTERDAY.
--- NOTE | 2019-06-01 18:37 | NUR ---
HE HAD A BETTER MORNING TODAY BUT A PAINFUL AFTERNOON. HE IS VERY STIFF AND HAS ANXIETY WITH ANY MOVEMENT. MOBILITY SEEMED TO CAUSE PAIN IN HIS GROIN MORE THAN HIS SACRUM. HE RECEIVED BREAKTHROUGH OXYCODONE X1 TODAY FOR ME HE WAS MEDICATED BY THE NIGHT NURSE AT AM SHIFT CHANGE. HIS LOC HAS DECREASED TODAY AND HE HAS MILD CONFUSION ASKING REPEATEDLY TO HIS FIANCEE WHEN SHE CAME OR HOW LONG SHE HAS BEEN HERE. SHE IS AT THE BEDSIDE NOW AND WAS HERE EARLIER TODAY FOR A COUPLE OF HRS. SEE EARLIER NURSES NOTE REGARDING OSTOMIES AND NEPH DRAIN. IV BOLUS GIVEN THIS EVENING PRIOR TO THE START OF THE TRANSFUSION. 1ST UNIT OF BLOOD INFUSING NOW WITHOUT PROBLEM.
--- NOTE | 2019-06-02 04:43 | NUR ---
Shift summary: Pt has had a rough night with very little sleep. Pt has recieved all the pain meds he can get with only moderate relief. Pt has a very hard time getting comfortable. Pt depressed and crying at times. Ilieostomy, nephrostomy and urostomy drains working and in place. Minimal drainage to nephrostomy bag. Pt recieved 2 units of blood overnight with no noted reactions. VSS. No high temperature last pm.
[2019-06-02 04:56] LABS: BASOPHILS ABSOLUTE AUTO 0.02 K/mm3 (0.00-0.23); BASOPHILS PERCENT AUTO 0 % (0-2); EOSINOPHILS ABSOLUTE AUTO 0.08 K/mm3 (0.00-0.68); EOSINOPHILS PERCENT AUTO 1 % (0-6); Hemoglobin 9.1 g/dL (13.5-17.5); IMMATURE GRAN ABSOLUTE AUTO 0.07 K/mm3 (0.00-0.10); IMMATURE GRAN PERCENT AUTO 1 % (0-1); LYMPHOCYTES ABSOLUTE AUTO 1.12 K/mm3 (0.84-5.20); LYMPHOCYTES PERCENT AUTO 14 % (21-46); MONOCYTES PERCENT AUTO 10 % (4-13); Mean Corpuscular HGB 26.1 pg (26.0-34.0); Mean Corpuscular HGB Conc 31.4 g/dL (31.5-36.5); Mean Corpuscular Volume 83 fL (80-100); Mean Platelet Volume 8.5 fL (9.1-12.4); NEUTROPHILS PERCENT AUTO 74 % (41-73); Platelet Count 245 K/mm3 (150-400); RDW Coefficient Variation 16.2 % (11.7-14.2); RDW Standard Deviation 49.1 fL (35.1-46.3); Red Blood Cell Count 3.49 M/mm3 (4.30-5.90); White Blood Cell Count 7.89 K/mm3 (4.00-11.30)
[2019-06-02 05:20] LABS: Albumin, Blood 1.7 g/dL (3.4-5.0); Anion Gap 7 mmol/L (6-16); Blood Urea Nitrogen 25 mg/dL (8-24); Bun/Creatinine Ratio 12.6 (12.0-20.0); CO2, Blood 21 mmol/L (21-32); Calcium, Blood 9.3 mg/dL (8.5-10.1); Chloride, Blood 104 mmol/L (98-108); Creatinine, Blood 1.98 mg/dL (0.60-1.20); Glomerular Filtration Rate 36 (60-); Glucose, Blood 92 mg/dL (70-99); Phosphorus, Blood 3.9 mg/dL (2.5-4.9); Sodium, Blood 132 mmol/L (136-145)
--- NOTE | 2019-06-02 19:26 | NUR ---
PATIENT IS ALERT AND ORIENTED AND COOPERATIVE WITH CARE. HIS FIANCE IS AT THE BEDSIDE NOW. PATIENT SAT ON THE EDGE OF THE BED FOR BREAKFAST AND SAT IN BED FOR THE REST OF HIS MEALS. HE RECIEVED A CMOPLETE BED BATH TODAY. HIS UROSTOMY, ILIOSTOMY AND NEPHROSTOMY ARE PATENT AND DRAINING. MEDICATION FOR PAIN PER EMAR. HE HAD A BLOOD SUGAR OF 68 BEFORE DINNER, GIVEN ORANGE JUICE AND ATE DINNER. BLOOD SUGAR IS BEING RECHECKED NOW. REPORT HAS BEEN GIVEN TO ONCOMING SHIFT.
--- NOTE | 2019-06-03 04:25 | NUR ---
SHIFT SUMMARY PT SLEPT OFF AND ON T/O SHIFT. PT HAD SOME INCREASED DISCOMFORT LATE IN SHIFT. PT TX PER EMAR AND WAS ABLE TO GO TO SLEEP. PT VARIOUS OSTOMIES DRAINING FINE. PT DIDHAVE A TEMP AT BEGINNING OF SHIFT AND WAS TX PER EMAR. PT HAD NO ISSUES NOTED. PT CURRENTLY SLEEPING AND BREATHING EASY. PT WANTS TO SPEAK WITH PROVIDER 06/03/19. STATES SHE CAN BE AT [facility] AT 1030 HRS. CALL LIGHT IN REACH.
[2019-06-03 05:19] LABS: BASOPHILS ABSOLUTE AUTO 0.02 K/mm3 (0.00-0.23); BASOPHILS PERCENT AUTO 0 % (0-2); EOSINOPHILS ABSOLUTE AUTO 0.13 K/mm3 (0.00-0.68); EOSINOPHILS PERCENT AUTO 2 % (0-6); Hematocrit 28.7 % (37.0-53.0); Hemoglobin 8.9 g/dL (13.5-17.5); IMMATURE GRAN ABSOLUTE AUTO 0.08 K/mm3 (0.00-0.10); IMMATURE GRAN PERCENT AUTO 1 % (0-1); LYMPHOCYTES ABSOLUTE AUTO 0.99 K/mm3 (0.84-5.20); LYMPHOCYTES PERCENT AUTO 11 % (21-46); MONOCYTES ABSOLUTE AUTO 0.86 K/mm3 (0.16-1.47); MONOCYTES PERCENT AUTO 10 % (4-13); Mean Corpuscular HGB 26.2 pg (26.0-34.0); Mean Corpuscular Volume 84 fL (80-100); Mean Platelet Volume 8.5 fL (9.1-12.4); NEUTROPHILS ABSOLUTE AUTO 6.58 K/mm3 (1.96-9.15); NEUTROPHILS PERCENT AUTO 76 % (41-73); Platelet Count 230 K/mm3 (150-400); RDW Coefficient Variation 16.2 % (11.7-14.2); RDW Standard Deviation 50.5 fL (35.1-46.3); White Blood Cell Count 8.66 K/mm3 (4.00-11.30)
[2019-06-03 05:45] LABS: Albumin, Blood 1.6 g/dL (3.4-5.0); Albumin/Globulin Ratio 0.3 (0.8-1.8); Bilirubin, Total 0.4 mg/dL (0.1-1.0); Bun/Creatinine Ratio 12.5 (12.0-20.0); Calcium, Blood 9.3 mg/dL (8.5-10.1); Creatinine, Blood 2.16 mg/dL (0.60-1.20); Globulin, Blood 5.1 g/dL (2.2-4.0); Magnesium, Blood 1.7 mg/dL (1.6-2.4); Potassium, Blood 4.1 mmol/L (3.5-5.5); Total Protein, Blood 6.7 g/dL (6.4-8.2)
[2019-06-03 05:48] LABS: Thyroid Stimulating Hormone 0.392 uIU/mL (0.360-4.800)
[2019-06-03 05:51] LABS: Percent Saturation 10.7 % (20.0-50.0)
[2019-06-03] MEDS ORDERED: LEVOFLOXACIN250 MG PO (12:09)
[2019-06-03] MEDS ORDERED: SENN187 PO (12:09)
[2019-06-03] MEDS ORDERED: MIRALAX17 GM PO (12:09)
--- NOTE | 2019-06-03 15:15 | NUR ---
PATIENT D/C'D TO [facility] AT THIS TIME. FAMILY AWARE. REPORT WAS CALLED TO YAMILETH JENKINS AT 1445. PATIENT W/O C/O AT THIS TIME. STATES PAIN AT MANAGEABLE LEVEL. NO ACUTE CHANGES.
== END 2019-06-03 15:21 | disposition home or self-care (01) | DRG 689 ==
LOC: ER 20:28 → ERHOLD 20:29 → MEDS 05-30 11:13 → ENPENDDIS 06-03 11:26 → MEDS 06-03 15:21
PROVIDERS: Emergency Medicine; Internal Medicine; ADMIT Hospitalist
PROC: 30233N1 Transfusion of Nonautologous Red Blood Cells into Peripheral Vein, Percutaneous Approach (ICD-10-PCS; principal; 2019-05-31)
DX: N39.0 Urinary tract infection, site not specified (principal); J18.1 Lobar pneumonia, unspecified organism; E87.1 Hypo-osmolality and hyponatremia; C79.9 Secondary malignant neoplasm of unspecified site; C67.9 Malignant neoplasm of bladder, unspecified; I12.9 Hypertensive chronic kidney disease with stage 1 through stage 4 chronic kidney disease, or unspecified chronic kidney disease; E11.22 Type 2 diabetes mellitus with diabetic chronic kidney disease; N18.3 Chronic kidney disease, stage 3 (moderate); N99.521 Infection of incontinent external stoma of urinary tract; Z93.6 Other artificial openings of urinary tract status; Z86.718 Personal history of other venous thrombosis and embolism; Z93.2 Ileostomy status; Z90.6 Acquired absence of other parts of urinary tract; Z79.4 Long term (current) use of insulin; E66.9 Obesity, unspecified; E78.5 Hyperlipidemia, unspecified; Z87.891 Personal history of nicotine dependence; J44.9 Chronic obstructive pulmonary disease, unspecified; D64.9 Anemia, unspecified; Z51.5 Encounter for palliative care; G89.3 Neoplasm related pain (acute) (chronic)
CPT/HCPCS: 36415; 36430; 71046; 80048; 80053; 80069; 81001; 82728; 82947; 83540; 83550; 83605; 83735; 84443; 85025; 86850; 86900; 86901; 86923; 87040; 87077; 87086; 87186; 93005; 93010; 94640; 94760; 96365; 97110; 97162; 97530; 99285-25; A9270; G0378; J1956; J7030; J7040; P9016

== ENCOUNTER 2019-06-15 00:32 | Inpatient (IN) | payer OTHER ==
[~2019-06-15] VITALS: Ht 182.9 cm; Wt 95.4 kg
[~2019-06-15 00:32] MED LIST changes: +Advair Hfa 45-212 GM INH; +FENT50TP TOP; +GABA600 PO; +LEVOFLOXACIN250 MG PO; +LIDO700A20 TOP; +MIRALAX17 GM PO; +OXYC30ER PO; +ROXICODONE5 MG PO; +SENN187 PO; +THERAGRAN-M PR1 EACH PO; +XARELTO1 EACH PO
[2019-06-15 00:53] LABS: BASOPHILS ABSOLUTE AUTO 0.05 K/mm3 (0.00-0.23); BASOPHILS PERCENT AUTO 0 % (0-2); EOSINOPHILS PERCENT AUTO 0 % (0-6); Hematocrit 37.3 % (37.0-53.0); Hemoglobin 11.5 g/dL (13.5-17.5); IMMATURE GRAN ABSOLUTE AUTO 0.25 K/mm3 (0.00-0.10); IMMATURE GRAN PERCENT AUTO 1 % (0-1); LYMPHOCYTES ABSOLUTE AUTO 0.93 K/mm3 (0.84-5.20); LYMPHOCYTES PERCENT AUTO 4 % (21-46); MONOCYTES ABSOLUTE AUTO 0.99 K/mm3 (0.16-1.47); MONOCYTES PERCENT AUTO 4 % (4-13); Mean Corpuscular HGB 25.8 pg (26.0-34.0); Mean Corpuscular HGB Conc 30.8 g/dL (31.5-36.5); Mean Platelet Volume 9.5 fL (9.1-12.4); NEUTROPHILS ABSOLUTE AUTO 20.23 K/mm3 (1.96-9.15); NEUTROPHILS PERCENT AUTO 90 % (41-73); Platelet Count 181 K/mm3 (150-400); RDW Coefficient Variation 16.3 % (11.7-14.2); RDW Standard Deviation 49.7 fL (35.1-46.3); Red Blood Cell Count 4.45 M/mm3 (4.30-5.90); White Blood Cell Count 22.45 K/mm3 (4.00-11.30)
[2019-06-15 00:54] LABS: Mean Corpuscular Volume 84 fL (80-100)
[2019-06-15 01:12] LABS: Ethanol (Alcohol), Blood, Med <3 mg/dL; Troponin I 0.114 ng/mL (0.000-0.040)
[2019-06-15 01:14] LABS: Alanine Aminotransfer (ALT/SGP 41 U/L (12-78); Albumin, Blood 1.8 g/dL (3.4-5.0); Albumin/Globulin Ratio 0.3 (0.8-1.8); Alk Phos 329 U/L (50-136); Anion Gap 7 mmol/L (6-16); Aspartate Aminotrans (AST/SGOT 64 U/L (12-37); Bilirubin, Total 0.5 mg/dL (0.1-1.0); Blood Urea Nitrogen 59 mg/dL (8-24); Bun/Creatinine Ratio 22.4 (12.0-20.0); CO2, Blood 27 mmol/L (21-32); Calcium, Blood 14.8 mg/dL (8.5-10.1); Chloride, Blood 99 mmol/L (98-108); Creatinine, Blood 2.63 mg/dL (0.60-1.20); Globulin, Blood 6.1 g/dL (2.2-4.0); Glomerular Filtration Rate 26 (60-); Glucose, Blood 98 mg/dL (70-99); Potassium, Blood 4.5 mmol/L (3.5-5.5); Sodium, Blood 133 mmol/L (136-145); Total Protein, Blood 7.9 g/dL (6.4-8.2)
[2019-06-15 01:35] LABS: PCO2 Arterial 40.4 mmHg (35-45); PO2 Arterial 55.6 mmHg (80-100); pH Blood Arterial 7.45 (7.35-7.45)
[2019-06-15 01:36] LABS: CPK Creatine Kinase 133 U/L (39-308)
[2019-06-15 01:37] LABS: Creatine Kinase MB <1.0 ng/mL (0.0-3.6); Creatine Kinase MB Index Unable to Calculate (0.0-4.0)
[2019-06-15 01:46] LABS: International Normalized Ratio 1.43; Prothrombin Time Results 14.7 Sec (9.7-11.5)
[2019-06-15 01:49] LABS: Source, Urine Catheter
[2019-06-15 01:52] LABS: Appearance, Urine Hazy (Clear); Blood, Urine 4+ (Neg); Color, Urine Yellow (P-Yellow); Glucose Qualitative, Urine Neg (Neg); Ketones, Urine Neg (Neg); Leukocyte Esterase, Urine 2+ (Neg); Nitrite, Urine Neg (Neg); Protein, Urine 2+ (Neg); Urobilinogen, Urine 1+ (Normal)
[2019-06-15 01:57] LABS: Bilirubin, Urine 1+ (Neg)
[2019-06-15 02:00] LABS: Bacteria Many /hpf; Red Blood Cells, Urine 0-2 /hpf (0-2); Squamous Epithelial Cells Not Seen /hpf (Few)
[2019-06-15 02:01] LABS: Amorphous Light (0-Heavy)
[2019-06-15 02:18] LABS: U Amphetamine Screen Not Detected; U Barbituate Screen Not Detected; U Benzodiazapine Screen Not Detected; U Buprenorphine Screen Not Detected; U Cannabinoids Screen Not Detected; U Cocaine Screen Not Detected; U Methadone Screen Not Detected; U Methamphetamine Screen Not Detected; U Opiates Screen Not Detected; U Oxycodone Screen DETECTED; U Phencyclidine Screen Not Detected; U Propoxyphene Screen Not Detected
[2019-06-15 09:25] LABS: Bun/Creatinine Ratio 21.9 (12.0-20.0); Creatinine, Blood 2.6 mg/dL (0.60-1.20); Potassium, Blood 4.4 mmol/L (3.5-5.5); Troponin I 0.244 ng/mL (0.000-0.040)
[2019-06-15 09:27] LABS: Calcium, Blood 14.4 mg/dL (8.5-10.1)
--- NOTE | 2019-06-15 12:14 | NUR ---
CALLED ER FOR REPORT, SPOKE WITH FAZAL GONZALEZ, SHE IS COVERING THE ATTENDING NURSE FAZAL AGUSTIN, FOR LUNCH, DID NOT FEEL COMFORTABLE TO GIVE REPORT, AWAITING VAMSI'S CALL.
[2019-06-15] MEDS ORDERED: Lantus100 UNIT/1 SC (12:35)
[2019-06-15] MEDS ORDERED: THERA1 EACH PO (12:36)
[2019-06-15] MEDS ORDERED: FERSU300 PO (12:37)
--- NOTE | 2019-06-15 13:12 | NUR ---
PATIENT ARRIVED IN ROOM ICU 9 VIA MED/SURG BED AFTER RECEIVING REPORT FROM FAZAL AGUSTIN, ED, PATIENT WAS MOVED TO ICU BED VIA SLIDER, TOLERATED FAIR, PATIENT IS UNRESPONSIVE AT THIS TIME, UNABLE TO FOLLOW COMMANDS, AND NONVERBAL, MOANS AT TIMES, ON AIRVO 40L WITH FiO2 40 %, PATIENT COUGHED AND STARTED TO GURGLE WITH BROWNISH SPUTUM DRIPPING FROM SIDE OF MOUTH, SUCTIONED, RT IN TO SET UP PATIENT IN ROOM, PATIENT HAS A RIGHT NEPHROSTOMY WITH DRAINAGE BAG, GOOD URINE OUTPUT, PATIENT ALSO HAS A RIGHT ILEOSTOMY WITH BLADDER DIVERSION, BAG SHOWS SOME BLOODY DRAINAGE, COLOSTOMY ON LLQ, NO OUTPUT NOTED, PATIENT IS IN SR/ST WITH HR IN 90'S, BLOOD PRESSURES FROM 150'S TO 170'S, NO S/S THAT PATIENT IS IN PAIN, UPON ARRIVAL PATIENT'S TEMP WAS TAKEN VIA TEMPORAL PROBE AND IT SHOWED 103.5, RECTAL PROBE PLACED AND TEMP 100.9, PATIENT IS UNABLE TO ANSWER ANY QUESTIONS, HISTORY GATHERED FROM PREVIOUS HOSPITAL ADMISSIONS, DR. THOMPSON AWARE THAT PATIENT NOW IN ICU, CALL LIGHT IN REACH, WILL CONTINUE TO MONITOR.
[2019-06-15 13:23] LABS: Hematocrit 30.5 % (37.0-53.0); Hemoglobin 9.4 g/dL (13.5-17.5); Mean Corpuscular HGB Conc 30.8 g/dL (31.5-36.5); Mean Corpuscular Volume 85 fL (80-100); Mean Platelet Volume 9.3 fL (9.1-12.4); Platelet Count 118 K/mm3 (150-400); RDW Coefficient Variation 16.3 % (11.7-14.2); RDW Standard Deviation 50.9 fL (35.1-46.3); Red Blood Cell Count 3.61 M/mm3 (4.30-5.90); White Blood Cell Count 18.58 K/mm3 (4.00-11.30)
[2019-06-15 13:46] LABS: Albumin, Blood 1.4 g/dL (3.4-5.0); Albumin/Globulin Ratio 0.3 (0.8-1.8); Bilirubin, Total 0.4 mg/dL (0.1-1.0); Bun/Creatinine Ratio 22.1 (12.0-20.0); Calcium, Blood 14.1 mg/dL (8.5-10.1); Creatinine, Blood 2.67 mg/dL (0.60-1.20); Globulin, Blood 5.1 g/dL (2.2-4.0); Potassium, Blood 4.4 mmol/L (3.5-5.5); Total Protein, Blood 6.5 g/dL (6.4-8.2)
--- NOTE | 2019-06-15 14:20 | NUR ---
RT IN TO CHECK ON PATIENTS O2 SATURATION PLACED MASK FOR AIRVO AND NOW ON 50L WITH 89 %, PATIENT CONTUNES TO HAVE LOW O2 SATURATION AT 88 TO 89 %, DR. THOMPSON AWARE, CALL LIGHT IN REACH, WILL CONTINUE TO MONITOR.
[2019-06-15] MEDS ORDERED: PROBIOTIC BLEN1 EAC1 PO (15:59)
--- NOTE | 2019-06-15 16:00 | NUR ---
FANG MILIAN, PALLIATIVE CARE IN TO SEE PATIENT AND SIGNIFICANT OTHER AND TO DISCUSS CODE STATUS.
--- NOTE | 2019-06-15 17:06 | NUR ---
RT IN TO SEE PATIENT, CHANGED TO BIPAP FROM AIRVO D/T LOW O2 SATS.
--- NOTE | 2019-06-15 17:12 | NUR ---
CODE STATUS CHANGED TO DNR PER DR. THOMPSON.
--- NOTE | 2019-06-15 17:14 | NUR ---
Initial Visit: Palliative Care Consult for Medically Fragile and Advanced Care Planning. Pt is resting in bed with his eyes opened initially and quickly closes his eyes and keeps them closed for the duration of the visit. He appears comfortable and is on AIRVO. Pt's herbert Paulino is present during visit. Engaged in therapeutic discussion regarding Advanced Care Planning. Pt lives at home with Lora and she is his primary resident care aide. Recent hospitalization prior to current earlier this month. Listened as Lora discussed Pt's level of function before most recent string of hospitalizations. Pt was able to ambulate with FWW but needed assistance with bathing and dressing. She reports Pt has experienced significant deconditioning since. Lora reports Pt received radiation treatment and bladder reomoval due to his cancer. Lora reports plan is for him to see Dr Paul to start palliative immunotherapy treatment if he remain out of the hospital. Educated on termination clerk planning with hospice as an option if treatment becomes no longer beneficial with V/U made by Lora. Lora reports Pt has a duaghter in [place] that he speaks to once in a while and a son who he has not spoken with in years. Lora reports having a conversation with Pt regarding life sustaining measures. She reports Pt told her he would not want CPR or Intubation. She reports Pt has a purple DNR wrist band during his last hospital stay. Lora tearful at times during visit and this RN offered emotional support. Ended visit to allow Lora emotional recovery and suggested self care. Spoke with Dr Collazo regarding context of conversation and Pt expressing wishes to Lora about not wanting CPR and no Intubation. Discussed previous hospital stay and Pt's orders for DNR from previous hospitalization. Placed code status order for DNR per V/O from Dr Collazo. Palliative Care will remain available.
[2019-06-15 17:23] LABS: Troponin I 0.198 ng/mL (0.000-0.040)
--- NOTE | 2019-06-15 17:57 | NUR ---
SHIFT SUMMARY NOTE: PATIENT ARRIVED TO THE ICU ROOM 9 FROM ER HOLD, UNRESPONSIVE, PUPILS REACTIVE BUT SLUGGISH, AT TIMES WILL OPEN EYES SPONTANEOUSLY BUT DOES NOT TRACK, PATIENT WAS ON AIRVO UPON ARRIVAL 40L 76 % FiO2, HAD TO BE INCREASED TO 50L 89 % D/T PATIENT LABORING AND O2 SATS ONLY AT 88 %, ALSO PATIENT COUGHED AND THEN GURGLED, UNABLE TO CLEAR SECRETIONS, WAS SUCTIONED AND SOME THICK BROWN SECRETIONS WERE EXTRACTED, NOW ON BIPAP 10/6 FiO2 85 %, , ON ADMISSION PATIENT WAS A FULL CODE, NOW HAS BEEN CHANGED TO DNR, ARMBAND IN PLACE, FANG PALLIATIVE CARE, INVOLVED, SPOKE WITH PATIENT'S FIANCE, LARGE PRESSURE ULCER ON COCCYX WAS CLEANSED AND REDRESSED UPON ARRIVAL TO ICU 9, PICTURES IN CHART, ALSO LARGE EXCORIATED AREA ON LOWER MIDABDOMEN CLEANSED AND REDRESSED, PATIENT TOLERATED FAIR, FOR DETAILS SEE ADMISSION AND SHIFT ASSESSMENTS AND NURSES NOTES, CALL LIGHT IN REACH, WILL CONTINUE TO MONITOR AND GIVE REPORT TO ONCOMING DEPARTMENT MGR.
--- NOTE | 2019-06-15 20:00 | NUR ---
PT WILL SLIGHTLY OPEN EYE'S ON COMMAND. TRIES TO COUGH ON COMMAND. HAS WEAK COUGH. MOANS BUT NOT VERBAL. ON BIPAP AND TOLERATING WELL. PT HAS NEPHROSTOMY TO R SIDE THAT IS DRAINING YELLOW URINE. COLOSTOMY HAS NO OUTPUT AND ILLEOSTOMY THAT HAS URINARY DIVERSION HAS SMALL AMT OF RUST COLORED FLUID IN THE BAG. ILEOSTOMY STOMA IS BEEFY PALE RED APPEARANCE. COLOSTOMY STOMA IS ALSO PALE RED. APPLIANCES TO BOTH ARE INTACT AND NOT LEAKING. PT HAS WOUND TO MID ABD SEE WOUND CARE ASSESSMENT. ALSO HAS PRESSURE ULCER TO COCCYX THAT IS COVERED WITH MEPILEX. HAS SOME WHITE SLOUGH INSIDE THE WOUNDS.
[2019-06-15 20:22] LABS: U Amphetamine Screen Not Detected; U Barbituate Screen Not Detected; U Benzodiazapine Screen Not Detected; U Buprenorphine Screen Not Detected; U Cannabinoids Screen Not Detected; U Cocaine Screen Not Detected; U Methadone Screen Not Detected; U Methamphetamine Screen Not Detected; U Opiates Screen Not Detected; U Oxycodone Screen DETECTED; U Phencyclidine Screen Not Detected; U Propoxyphene Screen Not Detected
--- NOTE | 2019-06-15 21:30 | NUR ---
PT HAS TEMP THAT KEEPS CLIMBING DESPITE LOW TEMP IN ROOM AND NO BLANKETS ON. GAVE TYLENOL SUPPOSITORY AND PLACED ICE PACKS TO GROIN.
[2019-06-15 22:56] LABS: Adenovirus Not Detected (NOT DETECT); Bordetella pertussis Not Detected (NOT DETECT); Chlamydophila pneumoniae Not Detected (NOT DETECT); Coronavirus 229E Not Detected (NOT DETECT); Coronavirus HKU1 Not Detected (NOT DETECT); Coronavirus NL63 Not Detected (NOT DETECT); Coronavirus OC43 Not Detected (NOT DETECT); Human Metapneumovirus Not Detected (NOT DETECT); Human Rhinovirus/Enterovirus Not Detected (NOT DETECT); Influenza A Not Detected (NOT DETECT); Influenza A/2009-H1 Not Detected (NOT DETECT); Influenza A/H1 Not Detected (NOT DETECT); Influenza A/H3 Not Detected (NOT DETECT); Influenza B Not Detected (NOT DETECT); Mycoplasma pneumoniae Not Detected (NOT DETECT); Parainfluenza Virus 1 Not Detected (NOT DETECT); Parainfluenza Virus 2 Not Detected (NOT DETECT); Parainfluenza Virus 3 Not Detected (NOT DETECT); Parainfluenza Virus 4 Not Detected (NOT DETECT); Respiratory Syncytial Virus Not Detected (NOT DETECT)
--- NOTE | 2019-06-16 02:58 | NUR ---
PT RESTING WITH BIPAP ON. WILL OPEN EYE'S TO NAME AND IS GETTING QUICKER AT THIS T/O THE NIGHT. REPORT GIVEN TO LILIBETH DIEHL WHO WILL ASSUME CARE.
--- NOTE | 2019-06-16 03:27 | NUR ---
ASSUMED CARE REPORT RECIEVED. PT IS LAYING IN BED ON SIDE RESTING QUIETLY. BIPAP IN PLACE /, FIO2 50%. PG IN PLACE WITH NS TKO. NEPHROSTOMY, ILLEOSTOMY, AND COLOSTOMY C/D/I. WILL CONTINUE TO MONITOR.
--- NOTE | 2019-06-16 05:40 | NUR ---
SHIFT SUMMARY NO ACUTE CHANGES THIS SHIFT. PT IS MINIMALLY RESPONSIVE, PT ONLY MOANS OUT TO NOXIOUS STIMULI OR REPOSITIONING. VITAL SIGNS HAVE REMAINED STABLE. PT WITH BIPAP ON 08/22, FIO2 40%. POWERGLIDE TO TONYA C/D/I WITH NS TKO. PT WITH RIGHT NEPHROSTOMY IN PLACE WITH YELLOW OUTPUT NOTED. ILLEOSTOMY IN PLACE WITH SANTOSH BROWN COLORED OUTPUT NOTED, AND COLOSTOMY IN PLACE WITH NO OUTPUT NOTED. PT WITH MEPILEX IN PLACE TO WOUNDS ON COCCYX. NO FAMILY AT BEDSIDE. WILL CONTINUE TO MONITOR AND REPORT OFF TO ONCOMING RN.
--- NOTE | 2019-06-16 07:00 | NUR ---
REC'D REPORT FROM FAZAL MCELROY. WILL NOW ASSUME CARE OF THIS PT.
--- NOTE | 2019-06-16 07:15 | NUR ---
AM ASSESSMENT: PT IS OBTUNDED AND SLOW TO RESPOND TO VERBAL STIMULI. PT WILL OPEN EYES SOMEWHAT, BUT THEN IMMEDIATELY CLOSES THEM AND GOES BACK TO SLEEP. ANSWERS VERY SIMPLE YES/NO QUESTIONS. PT APPEARS COMFORTABLE AT THIS TIME. LUNGS WITH EXPIRATORY WHEEZES T/O BILATERALLY AND DIMINISHED IN THE BILATERAL BASES. SATS >90-92% ON BIPAP 08/22, [id number] TO BE INCREASE FROM 40 TO 50% AFTER ORAL CARE. PT DESATURATES QUICKLY AND 02 SATS SLOW TO RECOVER. HR REGULAR, SR-90'S RANGE. POWERGLIDE TO THE LT UA WITH NS TKO. ABD SOFT/ROUND/NO GRIMACE TO PALPATION. RT NEPHROSTOMY WITH URINARY DIVERSION, URINE CLEAR, YELLOW. LT COLONOSTOMY W/NO OUTPUT AT THIS TIME AND LT ILEOSTOMY.
--- NOTE | 2019-06-16 07:56 | NUR ---
DR THOMPSON IN TO ASSESS PT: UPDATED DR ON PT'S CURRENT STATUS. CONTINUE BIPAP FOR NOW, SEE NEW ORDERS.
[2019-06-16 08:26] LABS: Hemoglobin 9.7 g/dL (13.5-17.5); Mean Corpuscular HGB 26.5 pg (26.0-34.0); Mean Corpuscular HGB Conc 30.3 g/dL (31.5-36.5); Mean Corpuscular Volume 87 fL (80-100); Mean Platelet Volume 9.1 fL (9.1-12.4); RDW Coefficient Variation 16.5 % (11.7-14.2); RDW Standard Deviation 53.3 fL (35.1-46.3); Red Blood Cell Count 3.66 M/mm3 (4.30-5.90); White Blood Cell Count 27.44 K/mm3 (4.00-11.30)
[2019-06-16 08:27] LABS: Platelet Count 141 K/mm3 (150-400)
[2019-06-16 08:49] LABS: BAND PERCENT MAN 10 % (0-8); BASOPHILS PERCENT MAN 0 % (0-2); EOSINOPHILS PERCENT MAN 0 % (0-6); MONOCYTES PERCENT MAN 0 % (4-13); NEUTROPHILS ABSOLUTE MAN 27.44 K/mm3 (1.96-9.15); SEG NEUTROPHILS PERCENT MAN 90 % (41-73); TOTAL CELLS COUNTED 100
[2019-06-16 09:43] LABS: Calcium, Blood 14.3 mg/dL (8.5-10.1); Creatinine, Blood 2.71 mg/dL (0.60-1.20); Potassium, Blood 3.9 mmol/L (3.5-5.5)
[2019-06-16 13:13] LABS: PCO2 Arterial 38.8 mmHg (35-45); PO2 Arterial 73.8 mmHg (80-100); pH Blood Arterial 7.41 (7.35-7.45)
--- NOTE | 2019-06-16 17:28 | NUR ---
SHIFT SUMMARY: PT REMAINS OBTUNDED T/O SHIFT. PT RESPONDS SLIGHTLY TO PAINFUL STIMULI. PT NEEDS TO BE TURNED X2HR TO MAINTAIN SKIN INTEGRITY. LUNGS REMAIN CLEAR BUT DIMINISHED IN THE BILATERAL BASES, MORE DIMINISHED IN THE LT BASES. 02 SATS >90% ON BIPAP 08/22, FI02-50% T/O SHIFT. PT ONLY TOLERATES BEING OFF BIPAP FOR SHORT PERIODS OF TIME FOR ORAL CARE. HR REGULAR, SR-90'S RANGE. DOBHOFF PLACED PER FAZAL JONHSON, AND NEPHRO TUBE FEEDINGS STARTED PER ORDERS AFTER DOBHOFF CONFIRMED WITH CXR. NO RESIDUALS. CONTINUE TO MONITOR TOLERANCE OF TUBE FEEDINGS. RT POSTERIOR NEPHROSTOMY DRAINING CLEAR, YELLOW URINE TO GRAVITY. RT ILEOSTOMY WITH SOFT/BROWN OUTPUT AND FLATUS PRESENT. LT COLOSTOMY WITH NO OUTPUT THIS SHIFT. PT'S FIANCE REPORTS THAT PT WAS SUPPOSED TO HAVE A REANASTOMOSIS OF HIS COLOSTOMY BUT HAS NOT BEEN HEALTHY ENOUGH TO DO SO. ULCERS TO ABD COVERED WITH FOAM DRSG AND PRESSURE ULCER PRESENT TO COCCYX WITH FOAM DRSG IN PLACE.
--- NOTE | 2019-06-16 19:21 | NUR ---
REPORTED OFF TO FAZAL MARTIN WHOM WILL ASSUME CARE OF THIS PT.
--- NOTE | 2019-06-16 22:22 | NUR ---
NEPRO TUBE FEED INCREASED TO 40mL/HR. PT S/O ARMANDO CALLED AND WAS UPDATED.
--- NOTE | 2019-06-17 00:25 | NUR ---
START OF SHIFT: REPORT FROM CARLOS DIEHL. PT LYING SUPINE, HIGH FOWLERS POSITION WITH BIPAP IN PLACE AND TOLERATING WELL. VSS. PT NON-RESPONSIVE TO PAINFUL STIMULI BUT FLUTTERS EYELIDS WHEN NAME CALLED. PUPILS 2mm WITH BILAT FORWARD GAZE. PT GIVEN ORAL CARE WITH NO GAG-REFLEX NOTED. PT MOUTH DRY BUT WITHOUT CASTS. PT TOLERATED ORAL CARE USING O2 8L VIA N/C. LS CLEAR T/O WITH DIMINISHED BASES. ILLIOSTOMY, NEPHROSTOMY, AND COLOSTOMY EACH DRAINING WELL. NEPHRO TUBE FEED ADVANCED TO 40mL/hr 8 hrs POST START. PT TOLERATING TURNING AND POSITION CHANGES WITHOUT DESATURATIONS. PT'S S/O ARMANDO CALLED AND WAS UPDATED. WILL CONTINUE TO MONITOR.
[2019-06-17 04:26] LABS: BASOPHILS ABSOLUTE AUTO 0.09 K/mm3 (0.00-0.23); BASOPHILS PERCENT AUTO 0 % (0-2); EOSINOPHILS ABSOLUTE AUTO 0.01 K/mm3 (0.00-0.68); EOSINOPHILS PERCENT AUTO 0 % (0-6); Hematocrit 30.6 % (37.0-53.0); Hemoglobin 9.3 g/dL (13.5-17.5); IMMATURE GRAN ABSOLUTE AUTO 1.22 K/mm3 (0.00-0.10); IMMATURE GRAN PERCENT AUTO 4 % (0-1); LYMPHOCYTES ABSOLUTE AUTO 0.91 K/mm3 (0.84-5.20); LYMPHOCYTES PERCENT AUTO 3 % (21-46); MONOCYTES ABSOLUTE AUTO 0.83 K/mm3 (0.16-1.47); MONOCYTES PERCENT AUTO 3 % (4-13); Mean Corpuscular HGB 26.3 pg (26.0-34.0); Mean Corpuscular HGB Conc 30.4 g/dL (31.5-36.5); Mean Corpuscular Volume 87 fL (80-100); Mean Platelet Volume 9.9 fL (9.1-12.4); NEUTROPHILS ABSOLUTE AUTO 26.93 K/mm3 (1.96-9.15); NEUTROPHILS PERCENT AUTO 90 % (41-73); Platelet Count 121 K/mm3 (150-400); RDW Coefficient Variation 16.8 % (11.7-14.2); RDW Standard Deviation 53.5 fL (35.1-46.3); Red Blood Cell Count 3.53 M/mm3 (4.30-5.90); White Blood Cell Count 29.99 K/mm3 (4.00-11.30)
[2019-06-17 04:43] LABS: BAND PERCENT MAN 5 % (0-8); BASOPHILS PERCENT MAN 0 % (0-2); Bun/Creatinine Ratio 28.2 (12.0-20.0); Calcium, Blood 12.7 mg/dL (8.5-10.1); Creatinine, Blood 2.77 mg/dL (0.60-1.20); EOSINOPHILS PERCENT MAN 0 % (0-6); METAMYELOCYTE ABSOLUTE MAN 0.29 K/mm3 (0.00-0.00); METAMYELOCYTE PERCENT MAN 1 % (0-0); MONOCYTES ABSOLUTE MAN 0.29 K/mm3 (0.16-1.47); MONOCYTES PERCENT MAN 1 % (4-13); Magnesium, Blood 2.3 mg/dL (1.6-2.4); NEUTROPHILS ABSOLUTE MAN 29.39 K/mm3 (1.96-9.15); Phosphorus, Blood 3.4 mg/dL (2.5-4.9); Potassium, Blood 3.8 mmol/L (3.5-5.5); SEG NEUTROPHILS PERCENT MAN 93 % (41-73); TOTAL CELLS COUNTED 100
--- NOTE | 2019-06-17 04:58 | NUR ---
PT MORE RESPONSIVE THIS AM. PT OPENING EYES TO VOICE AND SQUEEZING WITH HANDS BILATERALLY. NO MOVEMENT TO BILATERAL LOWER EXTREM. VITALS REMAIN STABLE. BIPAP CONTINUES 10/6, FiO2 50%.
[2019-06-17 05:51] LABS: PCO2 Arterial 26.3 mmHg (35-45); PO2 Arterial 133 mmHg (80-100)
--- NOTE | 2019-06-17 07:15 | NUR ---
AM ASSESSMENT: REC'D REPORT FROM FAZAL MARTIN AND ASSUMED CARE OF PT. WILL WILL ONLY AWAKEN/SLIGHTLY OPEN EYES TO STERNAL RUB. DOES NOT ANSWER ANY QUESTIONS OR FOLLOW ANY COMMANDS. NO SPEECH, EXCEPT MOANING W/REPOSITIONING. LUNGS ARE CLEAR T/O, DIMINISHED IN THE BILATERAL BASES. 02 SATS >90% ON BIPAP /, FI02-70%. HR REGULAR, SR 80-90'S RANGE. POWERGLIDE IN LT UA WITH NS W/20MEQ OF KCL @75ML/HR. ABD SOFT/ROUND/NO GRIMACE WITH PALPATION. BT'S ACTIVE X4 QAUDS. PT CONTINUES ON NEPHRO @ 50ML/HR (INCREASED AT 0700) PER DOBHOFF IN THE LT NARES. ILEOSTOMY AND COLOSTOMY APPLIANCES C/D/I WITH MINIMAL OUTPUT. RT MID POSTERIOR NEPHROSTOMY TUBE DRAINING CLEAR, YELLOW URINE TO GRAVITY. -DNR STATUS -HAVE PALLATIVE CARE SPEAK WITH DAUGHTER/FIANCE, RE: FUTHER PLAN OF CARE. -CONTINUE TO INCREASE TUBE FEEDS TO GOAL RATE -DR PORTER CONSULT RE: SEPSIS, UNKNOWN SOURCE.
[2019-06-17 08:51] LABS: Vancomycin, Trough 19.2 ug/mL (5.0-10.0)
--- NOTE | 2019-06-17 11:05 | NUR ---
FANG, PALLATIVE CARE AND DR THOMPSON AT THE BEDSIDE TO DISCUSS PLAN OF CARE WITH PT'S FIANCE. SEE PALLATIVE CARE NOTES.
--- NOTE | 2019-06-17 11:22 | NUR ---
Pt visit this AM. Pt is resting in bed with his eyes closed and is non responsive at time of visit. Pt's Jamia and her mother are present during visit. Dr Collazo also present during visit. 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 Jamia Lora tearful at times but states she would not want him to suffer and reported conversation she had with Pt in the past and feels he would not want this. No [facility] appointed at this time and Dr Collazo plans to call Pt's daughter Susannah in [place] and discuss with her as well. Palliative Care will F/U this afternoon for therapeutic visit after goals of care has been established.
--- NOTE | 2019-06-17 14:00 | NUR ---
Called and spoke with Pt's daughter Susannah who lives in [place]. Susannah's number is [phone]. Engaged in therapeutic discussion regarding Pt's condition and prognosis. Relayed information the was discussed with Dr Collazo, this RN, and Pt's herbert Paulino. Discussed goals of care including options for comfort care. Susannah reports just recently establishing a relationship with her father (Pt) via text message. She feels that comfort care would be appropriate but since Lora has been with him and knows him best, Susannah defers all decision making to Lora. uSsannah reports no concerns at this time and expresses appreciation of conversation. Instructed Susannah to contact palliative care with any questions or concerns.
--- NOTE | 2019-06-17 16:13 | NUR ---
SHIFT SUMMARY: PT IS REMAINS OBTUNDED AND NON-RESPONSIVE. DOES NOT RESPOND TO PAINFUL STIMULI/STERNAL RUB. WILL MOAN WITH TURNS, OTHERWISE NON-VERBAL. TURNING PT Q2HR FOR SKIN INTEGRITY PT HAS SIGNIFICANT PRESSURE ULCER PRESENT TO COCCYX/RT/LT BUTTOCKS. FANG FROM PALLATIVE CARE MET WITH PT'S FIANCE (ARMANDO) TO DISCUSS PT'S TX WISHES. DISCUSSES POSSIBLY PROCEEDING TO COMFORT CARE, HOWEVER, PT'S DAUGHTER IS NEXT OF KIN AND DECISION WAS LEFT WITH HER, TO WHICH SHE REPORTS THAT SHE WOULD LIKE TO DEFER THE DECISION TO ARMANDO. ARMANDO REPORTS SHE WILL POSSIBLY MAKE A DECISION TOMORROW IN REGARDS TO FURTHER CARE. LUNGS ARE CLEAR BUT DIMINISHED IN THE LT BASE. SATS 90-92% ON BIPAP 10/6, FI02-60%, DECREASED FROM 70%. HR REGULAR, SR-80'S. NS W/20MEW KCL INCREASED TO 100ML/HR. ABD SOFT/ROUND/NO GRIMACE TO PALPATION. BT'S ACTIVE X4. PT TOLERATING TUBE FEEDINGS OF NEPHRO WELL. AT GOAL RATE OF 55ML/HR. NO OUTPUT FROM RLQ OSTOMY SITE, MINIMAL PASTY/SOFT/BROWN OUTPUT FROM LUQ OSTOMY SITE. ADEQUATE AMTS OF CLEAR, DARK YELLOW COLORED URINE PER RT NEPHROSTOMY TUBE.
--- NOTE | 2019-06-17 19:30 | NUR ---
RECEIVED HAND OFF FROM FAZAL GONZALEZ USING SBAR DURING BEDSIDE REPORT. LYING IN SEMI FOWLERS WHILE LEANED OVER TO HIS LEFT. NURSING HAD JUST REPOSITIONED HIM IN THE BED AND THAT HE SEEMS TO PREFER TO LEAN TO HIS LEFT. UNABLE TO STIMULATE A RESPONSE WITH STERNAL RUB OR FINGER NAIL BED. RESPIRATIONS EVEN SHALLOW, AND RAPID. LUNG SOUNDS CLEAR BILATERALLTY AND DIMINISHED IN LLL. BIPAP IN PLACE AND FUNCTIONAL SET AT 10/6 WITH FIO2 AT 60%. ABDOMEN ROUND WITH HYPOACTIVE BOWEL TONES NOTED. LEFT UPPER ARM POWERGLIDE IS PATENT, FLUSING WITH EASE WHILE INFUSING NS WITH 20MEQ KCL AT 100ML/HR, GOOD BLLOD RETURN NOTED. RIGHT UPPER ARM SL POWERGLIDE IS PATENT, EACH LUMEN FLUSHING WITH EASE AND GOOD BLLOD RETURN NOTED. RLQ ILEOSTOMY NOTED WITH SMALL AMOUNT OF DARK LIQUID NOTED IN LEG BAG. LLQ NOTED WITH COLOSTOMY WITH SMALL AMOUNT OF BROWN PUDDING CONSISTANCY STOOL WITH GAS NOTED IN BAG. MIDLINE ALEEVEN DRESSING NOTED C/D/I. RIGHT FLANK NEPHROSTOMY BAG EMPTIED, 175ML URINE NOTED. MEPILEX NOTED TO SACRUM AND GLUTEAL FOLD ARE C/D/I. SHIFT ASSESSMENT IN PROGRESS. SAFETY MEASURES IN PLACE.
[2019-06-18 04:25] LABS: BASOPHILS ABSOLUTE AUTO 0.06 K/mm3 (0.00-0.23); BASOPHILS PERCENT AUTO 0 % (0-2); EOSINOPHILS ABSOLUTE AUTO 0.09 K/mm3 (0.00-0.68); EOSINOPHILS PERCENT AUTO 0 % (0-6); Hematocrit 29.5 % (37.0-53.0); Hemoglobin 8.9 g/dL (13.5-17.5); IMMATURE GRAN ABSOLUTE AUTO 0.68 K/mm3 (0.00-0.10); IMMATURE GRAN PERCENT AUTO 3 % (0-1); LYMPHOCYTES ABSOLUTE AUTO 0.99 K/mm3 (0.84-5.20); LYMPHOCYTES PERCENT AUTO 4 % (21-46); MONOCYTES ABSOLUTE AUTO 1.01 K/mm3 (0.16-1.47); MONOCYTES PERCENT AUTO 4 % (4-13); Mean Corpuscular HGB Conc 30.2 g/dL (31.5-36.5); Mean Corpuscular Volume 86 fL (80-100); Mean Platelet Volume 10.2 fL (9.1-12.4); NEUTROPHILS ABSOLUTE AUTO 21.62 K/mm3 (1.96-9.15); NEUTROPHILS PERCENT AUTO 89 % (41-73); NRBC ABSOLUTE 0.02 K/mm3 (0.00-0.02); NRBC Auto 0.1 /100 WBC (0.0-0.2); Platelet Count 100 K/mm3 (150-400); RDW Coefficient Variation 16.7 % (11.7-14.2); RDW Standard Deviation 52.8 fL (35.1-46.3); Red Blood Cell Count 3.42 M/mm3 (4.30-5.90); White Blood Cell Count 24.45 K/mm3 (4.00-11.30)
[2019-06-18 04:44] LABS: Bun/Creatinine Ratio 32.6 (12.0-20.0); Calcium, Blood 11.4 mg/dL (8.5-10.1); Creatinine, Blood 2.91 mg/dL (0.60-1.20); Magnesium, Blood 2.3 mg/dL (1.6-2.4); Phosphorus, Blood 2.5 mg/dL (2.5-4.9); Potassium, Blood 3.8 mmol/L (3.5-5.5)
--- NOTE | 2019-06-18 06:18 | NUR ---
SHIFT SUMMARY HAS MAINTAINED STATUS THIS SHIFT. WILL MOAN WHEN REPOSITIONED, BUT NO RESPOSE WITH STERNAL RUB OR NAIL BED CHECK. COMPLETE BATH AND LINEN CHANGE COMPLETED THIS SHIFT.OSTOMY PRODUCT CHANGED AFTER PREVIOUS ONE BECAME DISLODGED DURING BED BATH, TOLERATED WELL. WILL GIVE HAND OFF TO ONCOMING SHIFT USING SBAR.
--- NOTE | 2019-06-18 06:42 | NUR ---
LARGE BM NOTED. PT ASSISTED BACK TO BED AND PLACED BACK ON CAPSULE. DENIES FURTHER NEEDS AT THIS TIME. WILL CONTINUE TO MONITOR.
--- NOTE | 2019-06-18 07:37 | NUR ---
START OF SHIFT NOTE: RECEIVED REPORT, ASSUMED CARE, PATIENT CONTINUES TO BE UNRESPONSIVE, DOES NOT RESPOND TO STERNAL RUBS OR PAINFUL STIMULI, ON BIPAP AT 10/6/60 % FiO2, TUBE FEED INFUSING VIA NG TUBE NEPRO 1.8 AT 55 CC/HR WITH Q4 WATER FLUSHES, LUNG SOUNDS ARE DIMINISHED, HEART SOUND DISTANT, PATIENT HAS A LEFT SIDED COLOSTOMY, A RIGHT SIDED ILEOSTOMY WITH BLADDER DIVERSION AND LEG BAG, ALSO A RIGHT NEPHROSTOMY WITH BAG COLLECTING ADEQUATED AMOUNTS OF URINE, MIDABDOMINAL EXCORIATION COVERED WITH MEPILEX, AND BILATERAL PRESSURE ULCER ON BUTTOCKS AND COCCYX, PREDAL PULSES PRESENT AND STRONG, CALL LIGHT IN REACH, WILL CONTINUE TO MONITOR.
--- NOTE | 2019-06-18 07:47 | NUR ---
DR. THOMPSON IN TO SEE PATIENT, NEW ORDERS RECEIVED.
--- NOTE | 2019-06-18 11:42 | NUR ---
NO CHANGE IN PATIENT STATUS, REMAINS UNRESPONSIVE TO PAINFUL STIMULI AND STERNAL RUBS.
--- NOTE | 2019-06-18 12:33 | NUR ---
SIGNIFICANT OTHER AT BEDSIDE, PATIENT CONTINUES TO BE UNRESPONSIVE, CALL LIGHT IN REACH, WILL CONTINUE TO MONITOR.
--- NOTE | 2019-06-18 14:09 | NUR ---
SON AND DAUGHTER IN LAW AT BEDSIDE, UPDATE ON PATIENT CONDITION PROVIDED, CALL LIGHT IN REACH, WILL CONTINUE TO MONITOR.
--- NOTE | 2019-06-18 15:20 | NUR ---
DR. THOMPSON IN TO SPEAK WITH FAMILY AND GIVE UPDATE ON PATIENT CONDITION.
--- NOTE | 2019-06-18 17:34 | NUR ---
SHIFT SUMMARY NOTE: NO ACUTE EVENTS DURING THIS SHIFT, PATIENT REMAINS ON BIPAP AT 10/6 WITH 60 % FiO2, TUBE FEEDS INFUSING AT 55 CC/HR WITH Q4 HR. WATER FLUSHES AT 30 CC, VSS, NO S/S OF PAIN, PATIENT IS UNRESPONSIVE, DOES NOT RESPOND TO PAINFUL STIMULI, MOANS SOME WHEN REPOSITIONED, RIGHT NEPHROSTOMY INCISION WAS REINFORCED WITH ABDOMINAL PAD AND FOAM TAPE D/T SLIGHT LEAKAGE, REDUCED URINE OUTPUT AT 525 CC DURING ENTIRE SHIFT, COLOSTOMY BAG WAS EMPTIED AND PASTY BROWN STOOL NOTED, ALSO HAS RIGHT SIDED ILEOSTOMY WITH BLADDER DIVERSION AND HOOKED TO LEG BAG, SCANT BLOODY OUTPUT, MIDABDOMINAL EXCORIATION COVERED WITH MEPILEX, ALSO BILATERAL BUTTOCK/COCCYX ULCER COVERED WITH MEPILEX, LORNE ROBERTS, IN TO SEE PATIENT, ACCOMPANIED BY SON AND DAUGHTER IN LAW, DR. THOMPSON SPOKE WITH THEM ABOUT FURTHER PLAN OF CARE, CALL LIGHT IN REACH, WILL CONTINUE TO MONITOR AND GIVE REPORT TO ONCOMING RN CAMP.
--- NOTE | 2019-06-18 20:00 | NUR ---
PT RESTING IN BED WITH BIPAP ON. PT WILL RAISE EYE BROW'S WHEN YOU SAY HIS NAME. NO OTHER RESPONSE OR MOVEMENT. KEEPS LEGS CONTRACTED. PT IS STIFF T/O. HAS NEPHROSTOMY TO R SIDE THAT HAS YELLOW URINE IN BAG. ILLEOSTOMY WITH BLADDER DIVERSION AND LEG BAG ATTACHED WITH SMALL AMT OF SANTOSH COLORED OUTPUT. ALSO HAS COLOSTOMY TO L ABD WITH BROWN LIQUID STOOL. BOTH STOMAS ARE PALE RED. PLACED MEPITEL ONE SAFETAC DRESSING TO BRIDGE OF NOSE DUE TO IT BEING RED FROM BIPAP. HAS MEPILEX DRESSING THAT IS C/D/I OVER COCCYX AND BUTTOCKS ULCERS.
[2019-06-19 05:03] LABS: BASOPHILS PERCENT AUTO 0 % (0-2); EOSINOPHILS ABSOLUTE AUTO 0.06 K/mm3 (0.00-0.68); EOSINOPHILS PERCENT AUTO 0 % (0-6); Hematocrit 32.1 % (37.0-53.0); Hemoglobin 9.8 g/dL (13.5-17.5); IMMATURE GRAN ABSOLUTE AUTO 1.07 K/mm3 (0.00-0.10); IMMATURE GRAN PERCENT AUTO 4 % (0-1); LYMPHOCYTES ABSOLUTE AUTO 1.04 K/mm3 (0.84-5.20); LYMPHOCYTES PERCENT AUTO 4 % (21-46); MONOCYTES ABSOLUTE AUTO 1.35 K/mm3 (0.16-1.47); MONOCYTES PERCENT AUTO 5 % (4-13); Mean Corpuscular HGB 26.2 pg (26.0-34.0); Mean Corpuscular HGB Conc 30.5 g/dL (31.5-36.5); Mean Corpuscular Volume 86 fL (80-100); Mean Platelet Volume 10.6 fL (9.1-12.4); NEUTROPHILS ABSOLUTE AUTO 24.59 K/mm3 (1.96-9.15); NEUTROPHILS PERCENT AUTO 87 % (41-73); NRBC ABSOLUTE 0.02 K/mm3 (0.00-0.02); NRBC Auto 0.1 /100 WBC (0.0-0.2); Platelet Count 97 K/mm3 (150-400); RDW Standard Deviation 53.4 fL (35.1-46.3); Red Blood Cell Count 3.74 M/mm3 (4.30-5.90); White Blood Cell Count 28.21 K/mm3 (4.00-11.30)
[2019-06-19 05:16] LABS: Bun/Creatinine Ratio 37.8 (12.0-20.0); Calcium, Blood 10.8 mg/dL (8.5-10.1); Creatinine, Blood 2.7 mg/dL (0.60-1.20); Magnesium, Blood 2.4 mg/dL (1.6-2.4); Phosphorus, Blood 1.9 mg/dL (2.5-4.9)
--- NOTE | 2019-06-19 06:08 | NUR ---
NO CHANGES THIS SHIFT.
--- NOTE | 2019-06-19 07:20 | NUR ---
START OF SHIFT NOTE: NO CHANGE IN PATIENT CONDITION, CONTINUES ON BIPAP 08/22/60 % FiO2, TUBE FEEDING AT 55 CC/HR WITH Q4 HR WATER FLUSHES OF 30 CC, PATIENT REMAINS UNRESPONSIVE, DOES NOT REACT TO PAINFUL STIMULI, NO MOANS WITH REPOSITIONING, SLIGHTLY ELEVATED TEMPERATURE AT 99.6, LEFT SIDED COLOSTOMY DRAINING BROWN LIQUID STOOLS, RIGHT SIDED ILEOSTOMY WITH BLADDER DIVERSION HAS SCANT AMOUNT OF DARK RED RUST COLORED LIQUID IN IT, RIGHT NEPHROSTOMY DRAINING YELLOW URINE, PATIENT HAS MIDABDOMINAL EXCORIATION COVERED WITH MEPILES, ALSO PRESSURE ULCER ON COCCYX COVERED WITH MEPILEX, HEELS ARE FLOATED AND ALSO HAVE MEPILEX APPLIED, LUNG SOUNDS ARE DIMINISHED, HEART SOUNDS DISTANT, CALL LIGHT IN REACH, WILL CONTINUE TO MONITOR.
--- NOTE | 2019-06-19 09:31 | NUR ---
CALLED ARMANDO, PATIENT'S FIANCE, AND PROVIDED UPDATE, SHE WILL COME TO VISIT SHORTLY.
--- NOTE | 2019-06-19 11:04 | NUR ---
PATIENT CHANGE IN O2 SATURATION, UNABLE TO KEEP O2 SATS ABOVE 70'S, RT NOTIFIED, PATIENT IS A DNR/DNI, RT UNABLE TO IMPROVE PATIENT OXYGENATION, DR. AQUINO NOTIFIED, WILL SEE PATIENT SOON, LORNE ROBERTS, NOTIFIED, WILL BE HERE SHORTLY, JACQUE, PALLIATIVE CARE, WAS ALSO NOTIFIED, WILL CONTINUE TO MONITOR.
--- NOTE | 2019-06-19 11:40 | NUR ---
PATIENT'S FIANCE ARMANDO AT BEDSIDE WITH A FEMALE FRIEND, IT APPEARS THAT SHE MAY BE IN DENIAL ABOUT PATIENT'S CONDITION, AARON, PALLIATIVE CARE, HERE, UPDATED ON SITUATION, ALSO DR. AQUINO NOTIFIED, HE WILL BE HERE TO SPEAK WITH SO, BUT STATED FOR NURSING STAFF "TO REINFORCE THE COMFORT CARE ISSUE".
--- NOTE | 2019-06-19 12:17 | NUR ---
Clinical Visit: Pt is currently on bipap. Per nurseLynn, pt's respiratory rate is increased, saturations are reduced as is blood pressure. Pt's fiance, Lora, is at bedside and also Lora's mother. Discussed with Lora, her mother is bedside and is listening. Reviewed current status of pt. Lora has been told that pt has poor prognosis and will likely not leave the hospital. This was discussed with Lora and she has full understanding of the pt's demise here. Reviewed comfort care orders and philosophy. Goal of care would change to comfort goals in mind: discontinue bipap, medications to support pain and symptom control, discontinue vitals. Lora is upset in many ways. She is wondering what is going to happen to her after he passes away. She is unable to make the rent independently and they just bought a new car. She was hoping that he could survive another 7 years, as she reads on the internet that people could survive past a bladder cancer diagnosis. She is very shaken up. The pt and herself have only gotten engaged on the may. She tried to get a marriage license in the last week or so, but she was unable to do so. She has been his caregiver and has been paid until mid-April to care for him in their home. He has been in hospitals and rehab places since then and she has been unable to have her income due to that. Supportive conversation with Lora. She is clearly grieving the loss of the patient and being faced with a complete re-ordering of her life. Dr. Magallon is in room and reviewing pt's complicated diagnoses with Lora. Therapeutic presence for Lora after left the room. She is ready to move to comfort care after spending a short time with the pt. She declines flume tender at this time. Questions answered. Reviewed with Lynn. Call placed to pt's daughter with no answer. It is documented in previous palliative care note from Marcio Nicholson that pts daughter, Susannha, has deferred all decision making to the pt's fiance, as she has not had contact with her father until very recently. Placed comfort orders with Lynn. Will discontinue all other treatments that do not address pt's comfort. Will remain available.
--- NOTE | 2019-06-19 12:30 | NUR ---
ARMANDO, PATIENT'S FIANCE, NOTIFIED THIS RN THAT SHE AND THE FAMILY ARE READY TO GO TO COMFORT CARE, AARON, PALLIATIVE CARE NOTIFIED, ALSO DR. AQUINO NOTIFIED, COMFORT CARE ORDERS PLACED, WILL CONTINUE TOMONITOR.
--- NOTE | 2019-06-19 13:05 | NUR ---
ALL IV MEDICATIONS WERE STOPPED AND DISCONTINUED, NG TUBE/DOBHOFF WAS REMOVED, BIPAP TAKEN OFF, TUBE FEED DISCONTINUED, PATIENT CONTINUE TO BE ON MONITOR, BUT NOT VISIBLE IN ROOM, LORNE ROBERTS, AND A FRIEND AT BEDSIDE, WILL CONTINUE TO MONITOR.
--- NOTE | 2019-06-19 15:15 | NUR ---
REPORT CALLED TO FAZAL MANRIQUEZ, COMFORT CARE NURSE, PATIENT WILL BE TRANSFERRED TO ROOM 309 VIA BED AND ALL BELONGINGS, ACCOMPANIED BY LORNE ROBERTS, AND FRIEND.
--- NOTE | 2019-06-19 15:30 | NUR ---
PT RECEIVED FROM ICU AND ASSISTED TO ROOM VIA BED. PT IS NOT RESPONSIVE AND DOES NOT RESPOND TO VERBAL STIMULI OR STERNAL RUB. RR ARE 30/MIN. PT POSITIONED COMFORTABLY IN BED.
--- NOTE | 2019-06-19 17:27 | NUR ---
SHIFT SUMMARY: PT RECEIVED FROM ICU THIS AFTERNOON AND HAS BEEN RESTING UNRESPONSIVE IN BED. PAIN MEDS HAVE BEEN GIVEN ORDERED FOR COMFORT CARE. S.O. HAS BEEN AT BEDSIDE AND JUST LEFT TO GO HOME FOR DINNER. PT CONTINUES WITH RR IN THE 30'S. LIGHTS ARE DIMMED AND MUSIC IS PLAYING FOR CALMING ENVIRONMENT. NURSING CONTINUES WITH FREQUENT CHECKS.
--- NOTE | 2019-06-20 04:53 | NUR ---
SHIFT SUMMARY PT APPEARED TO BE COMFORTABLE THIS SHIFT. PAIN MEDICATION GIVEN ORDERED. THIS RN SPOKE TO LORNE AND WAS TOLD [facility] IS THE HOME THE PT SHOULD BE SENT SHOULD HE THIS SHIFT. PT APPEARS TO BE WITHOUT DISTRESS. WILL CONTINUE TO CARLOS.
--- NOTE | 2019-06-20 16:23 | NUR ---
Clinical Visit: Pt's respirations are around 30/min. Nurse is medicating with roxanol for symptoms. Lora came in later. She is very tearful, still very worried about her future. She reports that her mother is on her way to support her. His children have been texting her for updates since 7am and she states that she avoided texting back because she didnt want to tell them that she wasn't at the bedside yet this morning. She state that she didn't even want to get out of bed this morning due to depression. Reviewed medications with her. Will remain available.
--- NOTE | 2019-06-20 17:15 | NUR ---
SHIFT SUMMARY: PT CONTINUES AT BASELINE ON COMFORT CARE. PAIN HAS BEEN MANAGED WITH MEDS ORDERED. PT RE-POSITIONED FOR COMFORT AND LIGHTS ARE LOW WITH MUSIC ON. S.O. IS AT BEDSIDE. NURSING CONTINUES TO ROUND HOURLY.
--- NOTE | 2019-06-21 06:11 | NUR ---
SHIFT SUMMARY PT APPEARS COMFORTABLE THIS SHIFT. REPOSTITIONED PT, ALTHOUGH MOVEMENT APPEARS TO AGGRAVATE PATIENT. PAIN MEDICATIONS GIVEN REGULARLY TO ENSURE COMFORT. CALLED FIANCE AROUND [id number], IT APPEARS PT MAY BE CLOSE TO EXPIRING. WILL CONTINUE TO MONITOR.
--- NOTE | 2019-06-21 14:20 | NUR ---
Comfort Care visit this afternoon. Pt is resting in bed and is non responsive. Pt appears disypneic as evidenced by labored breathing with respirations 32/min. Skin marm to the touch. Pt appears to be in the actively dying stage. Pt's herbert Paulino and Pt's mother in [facility] is at bedside. Educated on the importance of speaking with the Pt and reassuring him. Lora is tearful at times during visit and this RN offered emotional support. Spoke with bedside nurse Guillermo and she reports noting mottling. Reviewed medications for comfort. Pt appears to be actively dying and consideration should be made of Pt remaining in the hospital to minimize disruption of peaceful comfortable passing. Palliative Care will remain available.
--- NOTE | 2019-06-21 17:54 | NUR ---
SHIFT SUMMARY: PT CONTINUES ON COMFORT CARE AT BASELINE AND IS UNAROUSABLE. PT DOES GRIMACE WITH ANY MOVEMENT AND WHEN IN PAIN. RR REMAIN IN THE 30'S. MEDS GIVEN ORDERED THROUGHOUT SHIFT. S.O. REMAINS AT BEDSIDE THROUGHOUT SHIFT. NURSING CONTINUES WITH HOURLY ROUNDING.
--- NOTE | 2019-06-22 05:29 | NUR ---
SUCTIONED SECRETIONS NEEDED.
--- NOTE | 2019-06-22 06:02 | NUR ---
SHIFT SUMMARY PT REMAINS ON COMFORT CARE. PT FAMILY PRESENT AT BEGINNING OF SHIFT. PT MEDICATED NEEDED. PT FAMILY CALLED DUE TO POSSIBLE IMMINENT PASSING REQUESTED BY FAMILY. PT RESPS. ARE BECOMING SHALLOW AND SLOWED. PT HAS DECREASED RESPONSE WITH REPOSITIONING. WILL CONTINUE TO MONITOR.
--- NOTE | 2019-06-22 10:02 | NUR ---
pt slightly mottled , unresponsive repirations shallow and even.
--- NOTE | 2019-06-22 14:49 | NUR ---
Pt visit this afternoon. Pt is resting in bed with his eyes closed and is non responsive. Pt appears comfortable with no S/S of distress at this time. Spoke with bedside nurse Guillermo and she reports no concerns at this time. Palliative Care will remain available.
--- NOTE | 2019-06-22 16:04 | NUR ---
[facility] inital note: Mr. Becerra was alone in room and non-responsive. Breaths are even, eyes open slightly. He appears comfortable and well cared-for by nursing. I held his hand and prayed for a peaceful transition. I will continue to round, checking on pt and family.
--- NOTE | 2019-06-22 17:28 | NUR ---
SHIFT SUMMARY: PT HAS BEEN RESTING COMFORTABLY IN BED THIS SHIFT AND CONTINUES TO BE UNAROUSABLE. PT HAS NOT HAD ANY GRIMACING TODAY OR RESPONSE TO REPOSITIONING. PT HAS REMAINED AT BEDSIDE ALL DAY.
--- NOTE | 2019-06-22 19:32 | NUR ---
FAMILY IN ROOM, PT APPEARS COMFORTABLE.
--- NOTE | 2019-06-22 20:34 | NUR ---
REPOSITIONED, FAMILY PRESENT, APPEARS COMFORTABLE.
--- NOTE | 2019-06-23 00:19 | NUR ---
FAMILY WENT HOME, PT APPEARS COMFORTABLE
--- NOTE | 2019-06-23 01:24 | NUR ---
RESP ARE EVEN, PT APPEARS COMFORTABLE.
--- NOTE | 2019-06-23 07:31 | NUR ---
NOC SHIFT SUMMARY PT IS ON COMFORT CARE. DOES NOT RESPOND TO STIMULI BUT APPEARS COMFORTABLE. FAMILY WERE IN ROOM AT BEGINING OF SHIFT BUT LEFT TO REST AND SAY THEY WILL RETURN TODAY. NO CHANGES IN STATUS NOTED THIS NIGHT. APPEARS COMFORTABLE. REPORT TO ONCOMING RN.
--- NOTE | 2019-06-23 09:16 | NUR ---
PATIENT DID NOT EAT BREAKFST THIS SHIFT DUE TO BEING NPO AT THIS TIME.
--- NOTE | 2019-06-23 09:25 | NUR ---
PT WITH NO PULSE OR RESP. FAMILY AT BEDSIDE AND NOTIFIED STAFFF OF CHANGE IN RESP AT THE TIME. STATISTICAL REPORTING ANALYST NOTIFIED. SPIRITUAL CARE CALLED.
--- NOTE | 2019-06-23 12:05 | NUR ---
RASTA FROM [facility] HERE TO PICK PT UP AT 1155. FAMILY LEFT AND STATED THEY TOOK ALL BELONGINGS. DID CHECK ROOM AND FOUND NONE. POWER GLIDES REMOVED PRIOR TO LEAVING BUT OSTOMY BAGS REMAINED IN PLACE. TO [facility] VIA GURCHERYL
--- NOTE | 2019-06-23 17:08 | NUR ---
Provided prayer and bereavement alcohol and drug counselor at [facility].
== END 2019-06-23 09:20 | DRG 871 ==
LOC: ER 00:32 → ICUW 03:40 → ERHOLD 03:40 → ICUW 13:43 → MEDS 06-19 15:21
PROVIDERS: Emergency Medicine; Hospitalist; ADMIT Internal Medicine
PROC: 5A09457 Assistance with Respiratory Ventilation, 24-96 Consecutive Hours, Continuous Positive Airway Pressure (ICD-10-PCS; principal; 2019-06-15)
DX: A41.9 Sepsis, unspecified organism (principal); Z51.5 Encounter for palliative care; J96.01 Acute respiratory failure with hypoxia; C79.11 Secondary malignant neoplasm of bladder; G93.40 Encephalopathy, unspecified; N17.9 Acute kidney failure, unspecified; N39.0 Urinary tract infection, site not specified; R65.20 Severe sepsis without septic shock; E83.52 Hypercalcemia; E11.22 Type 2 diabetes mellitus with diabetic chronic kidney disease; I12.9 Hypertensive chronic kidney disease with stage 1 through stage 4 chronic kidney disease, or unspecified chronic kidney disease; N18.3 Chronic kidney disease, stage 3 (moderate); Z79.4 Long term (current) use of insulin; J44.9 Chronic obstructive pulmonary disease, unspecified; B95.2 Enterococcus as the cause of diseases classified elsewhere; L89.90 Pressure ulcer of unspecified site, unspecified stage; E11.622 Type 2 diabetes mellitus with other skin ulcer; E78.5 Hyperlipidemia, unspecified; E86.0 Dehydration
CPT/HCPCS: 0099U; 36415; 36600; 70450; 71045; 80048; 80053; 80202; 81001; 82140; 82330; 82550; 82553; 82803; 82947; 83605; 83735; 83880; 84100; 84145; 84484; 85025; 85027; 85610; 85730; 87040; 87077; 87086; 87186; 93005; 93010; 93306; 94640; 94660; 94760; 96361; 96365-59; 96366-59; 96367; 96372; 96372-59; 96375; 96375-59; 99285-25; C1751; G0480; J0630; J1170; J1650; J1940; J1956; J2020; J2060; J2185; J3370; J3480; J3489; J7030; J7050